=== PATIENT | male | born 1975 | race Caucasian/White ===

== ENCOUNTER 2020-12-31 09:31 | Outpatient (REF) | payer OTHER, SELFPAY ==
[2020-12-31 10:38] LABS: Alanine Aminotransferase 33 U/L (0-40); Albumin Level 4.4 g/dL (3.5-5.0); Alkaline Phosphatase 79 U/L (39-117); Anion Gap 11 (12-20); Aspartate Amino Transferase 27 U/L (5-37); Bilirubin Total 1.5 mg/dL (0.0-1.0); Blood Urea Nitrogen 17 mg/dL (9-16); Calcium 9.5 mg/dL (8.4-10.2); Carbon Dioxide 31 mmol/L (22-29); Chloride 103 mmol/L (96-108); Cholesterol 239 mg/dL; Estimated Glomerular Filt Rate > 60; Glucose Fasting 104 mg/dL (60-99); HDL Cholesterol 36 mg/dL; LDL Cholesterol Calculated 159 mg/dl; Potassium 4.2 mmol/L (3.3-5.1); Sodium 141 mmol/L (135-145); Triglycerides 224 mg/dL
== END 2020-12-31 09:32 | disposition home or self-care (01) ==
LOC: HO.10HDL 09:31
PROVIDERS: Visit Provider Internal Medicine
DX: E11.9 Type 2 diabetes mellitus without complications (principal)
CPT/HCPCS: 36415; 80053; 80061

== ENCOUNTER 2022-01-28 09:05 | Outpatient (REF) | payer OTHER, SELFPAY ==
[2022-01-28 09:15] LABS: MANUAL DIFF FLAG NO
[2022-01-28 09:56] LABS: Basophils Percent Auto 0.7 % (0-2); Eosinophils Absolute Auto 0.1 X10*3/uL (0.0-0.4); Eosinophils Percent Auto 1.4 % (0-4); Hematocrit 47.7 % (42.0-52.0); Hemoglobin 15.8 g/dl (14.0-18.0); Imm Gran Abs Auto 0.02 X10*3/uL (0.00-0.03); Imm Gran Pct Auto 0.3 % (0.0-0.4); Lymphocytes Percent Auto 35.1 % (20-40); Mean Corpuscular HGB Conc 33.1 g/dl (31.0-36.0); Mean Corpuscular Volume 90.5 fL (80.0-98.0); Mean Platelet Volume 10.1 fL (9.4-12.4); Monocytes Absolute Auto 0.6 X10*3/uL (0.1-1.2); Monocytes Percent Auto 10.6 % (2-11); Neutrophils Percent Auto 51.9 % (45-73); Platelet Count 214 X10*3/uL (160-400); Red Blood Count 5.27 X10*6/uL (4.60-5.80); White Blood Count 5.8 X10*3/uL (4.8-10.8)
[2022-01-28 11:29] LABS: Alanine Aminotransferase 30 U/L (0-40); Albumin Level 4.4 g/dL (3.5-5.0); Alkaline Phosphatase 71 U/L (39-117); Anion Gap 12 (12-20); Aspartate Amino Transferase 25 U/L (5-37); Bilirubin Total 1.4 mg/dL (0.0-1.0); Blood Urea Nitrogen 17 mg/dL (9-16); Calcium 9.6 mg/dL (8.4-10.2); Carbon Dioxide 30 mmol/L (22-29); Chloride 104 mmol/L (96-108); Cholesterol 238 mg/dL; Estimated Glomerular Filt Rate > 60; Glucose Fasting 105 mg/dL (60-99); HDL Cholesterol 37 mg/dL; LDL Cholesterol Calculated 161 mg/dl; Potassium 4.5 mmol/L (3.3-5.1); Sodium 141 mmol/L (135-145); Triglycerides 203 mg/dL
[2022-01-28 11:53] LABS: Thyroid Stimulating Hormone 1.14 uIU/mL (0.32-4.0)
== END 2022-01-28 09:06 | disposition home or self-care (01) ==
LOC: HO.LAB 09:05
PROVIDERS: PCP Internal Medicine; Visit Provider Internal Medicine
DX: Z00.00 Encounter for general adult medical examination without abnormal findings (principal); Z13.0 Encounter for screening for diseases of the blood and blood-forming organs and certain disorders involving the immune mechanism
CPT/HCPCS: 36415; 80053; 80061; 84443; 85025

== ENCOUNTER 2022-06-27 09:43 | Outpatient (REF) | payer OTHER, SELFPAY ==
[2022-06-27 11:15] LABS: Cholesterol 226 mg/dL; HDL Cholesterol 34 mg/dL; LDL Cholesterol Calculated 161 mg/dl; Triglycerides 159 mg/dL
== END 2022-06-27 09:44 | disposition home or self-care (01) ==
LOC: HO.10HDL 09:43
PROVIDERS: Visit Provider Internal Medicine
DX: E78.5 Hyperlipidemia, unspecified (principal)
CPT/HCPCS: 36415; 80061

== ENCOUNTER 2023-03-10 10:35 | Outpatient (REF) | payer OTHER, SELFPAY ==
[2023-03-10 13:25] LABS: MANUAL DIFF FLAG NO
[2023-03-10 13:26] LABS: Basophils Percent Auto 0.3 % (0-2); Eosinophils Absolute Auto 0.1 X10*3/uL (0.0-0.4); Hematocrit 44.1 % (42.0-52.0); Imm Gran Abs Auto 0.02 X10*3/uL (0.00-0.03); Imm Gran Pct Auto 0.3 % (0.0-0.4); Lymphocytes Absolute Auto 2.4 X10*3/uL (1.2-4.9); Lymphocytes Percent Auto 40.2 % (20-40); Mean Corpuscular Volume 88.2 fL (80.0-98.0); Mean Platelet Volume 10.4 fL (9.4-12.4); Monocytes Absolute Auto 0.6 X10*3/uL (0.1-1.2); Monocytes Percent Auto 9.6 % (2-11); Neutrophils Absolute Auto 2.9 x10*3/uL (2.0-8.3); Neutrophils Percent Auto 48.6 % (45-73); Platelet Count 223 X10*3/uL (160-400); Red Cell Distribution Width 12.3 % (11.0-16.0)
[2023-03-10 13:45] LABS: Alanine Aminotransferase 26 U/L (0-40); Albumin Level 4.4 g/dL (3.5-5.0); Alkaline Phosphatase 72 U/L (39-117); Anion Gap 13 (12-20); Aspartate Amino Transferase 24 U/L (5-37); Bilirubin Total 1.9 mg/dL (0.0-1.0); Blood Urea Nitrogen 20 mg/dL (9-16); Calcium 9.3 mg/dL (8.4-10.2); Carbon Dioxide 28 mmol/L (22-29); Chloride 104 mmol/L (96-108); Cholesterol 248 mg/dL; Estimated Glomerular Filt Rate > 60; Glucose Fasting 84 mg/dL (60-99); HDL Cholesterol 37 mg/dL; LDL Cholesterol Calculated 189 mg/dl; Sodium 141 mmol/L (135-145); Total Protein 6.9 g/dL (6.5-8.0); Triglycerides 110 mg/dL
[2023-03-10 13:55] LABS: Thyroid Stimulating Hormone 1.21 uIU/mL (0.32-4.0)
== END 2023-03-10 10:36 | disposition home or self-care (01) ==
LOC: HO.10HDL 10:35
PROVIDERS: Visit Provider Internal Medicine
DX: D64.9 Anemia, unspecified (principal); N28.9 Disorder of kidney and ureter, unspecified; E78.5 Hyperlipidemia, unspecified; E03.9 Hypothyroidism, unspecified
CPT/HCPCS: 36415; 80053; 80061; 84443; 85025

== ENCOUNTER 2023-07-24 09:48 | Outpatient (REF) | payer OTHER, SELFPAY ==
[2023-07-24 11:15] LABS: Cholesterol 225 mg/dL (<200); HDL Cholesterol 41 mg/dL (>40); LDL Cholesterol Calculated 158 mg/dL (<100); Triglycerides 133 mg/dL (<150)
== END 2023-07-24 09:49 | disposition home or self-care (01) ==
LOC: HO.10HDL 09:48
PROVIDERS: Visit Provider Internal Medicine
DX: E78.5 Hyperlipidemia, unspecified (principal)
CPT/HCPCS: 36415; 80061

== ENCOUNTER 2023-07-27 09:42 | Outpatient (AMB) | payer OTHER, SELFPAY ==
[2023-07-27 09:43] VITALS: BP 122/70; PULSE 72; O2SAT 99; BMI 23.4
--- NOTE | 2023-07-27 09:43 | MHC.PC.OV ---
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 Accompanied by: Self / Same As Patient Allergies amoxicillin [AMOXICILLIN] Allergy (Unknown, Verified 07/27/23 09:43) HIVES, Rash Medication List - Last Reconciled 07/27/23 by Conrado Zamora MD albuterol sulfate 90 mcg/actuation 2 puffs inhalation Q4-6H PRN albuterol sulfate 90 mcg/actuation (Ventolin HFA) 2 puffs inhalation Q4-6H PRN citalopram 30 mg (1.5 x 20 mg) PO DAILY Tobacco use date assessed: 05/01/23 Dental Screening Dental Screen Date: 07/27/23 Did you have a dental visit in the last 12 months?: Yes Did you have a dental problem in the last 6 months where you did not have access to dental care?: No Was dental information given to patient?: Patient has dentist HPI 3 mth f/u HPI Details panic disorder on rx; doing well; compliant [facility] Medical History Panic disorder Surgical History History of extraction of renal calculus History of adenoidectomy Family History Father Diabetes Hypertension Mother No problems noted. Maternal Grandfather Diverticulitis Brother No problems noted. Family/Other CAD (coronary artery disease) Social History Housing: Apartment Alcohol intake: current Alcohol intake frequency: holidays/special occasions only Patient Tobacco Use Status: Never used Tobacco e-Cigarette/Vaping Use: Never Used Second Hand Smoke Exposure: No service: No Current occupational status: employed Cognitive needs: No Hearing needs: No Vision needs: Yes Questionnaire PHQ-9 Over the last 2 weeks, how often have you been bothered by any of the following problems? 1. Little interest or pleasure in doing things: several days 2. Feeling down, depressed, or hopeless: several days 3. Trouble falling or staying asleep, or sleeping too much: several days 4. Feeling tired or having little energy: not at all 5. Poor appetite or overeating: not at all 6. Feeling bad about yourself - or that you are a failure or have let yourself or your family down: not at all 7. Trouble concentrating on things, such as reading the newspaper or watching television: not at all 8. Moving or speaking so slowly that other people could have noticed. Or the opposite - being so fidgety or restless that you have been moving around a lot more than usual: not at all 9. Thoughts that you would be better off or of hurting yourself in some way: not at all Total score: 3 Depression Screening Interpretation: Negative 20560 - PHQ-9 Billing: Yes Source: Developed by Drs. Moses Oseguera, Jane Little, Javier Weir and colleagues, with an educational neil from [employer]. Thrive Questionnaire Date Thrive assessed: 01/27/23 AUDIT C Alcohol Use Questionnaire (AUDIT-C) 1. How often do you have a drink containing alcohol?: Never Total Score: 0 Score Reviewed/Action Taken: Yes LISA-7 AMB Questionnaire LISA-7 Date LISA - 7 assessed: 01/27/23 Source: Developed by Drs. Moses Oseguera, Jane Little, Javier Weir and colleagues, with an educational neil from [employer]. Review of Systems Const Denies chills, Denies headache(s) and Denies weight loss ENT Denies headache(s) Card Denies chest pain, Denies syncope, Denies irregular heart rhythm and Denies dyspnea Resp Denies chest congestion, Denies cough and Denies dyspnea GI Denies abdominal pain, Denies change in stool character, Denies nausea and Denies vomiting Musc Denies deformity and Denies joint swelling Neuro Denies syncope and Denies headache(s) Physical exam (Primary Care) Vital Signs: Last Vital Signs Pulse 72 07/27/23 09:43 BP 122/70 07/27/23 09:43 Pulse Ox 99 07/27/23 09:43 Oxygen Delivery Method Room Air 07/27/23 09:43 BMI result Body Mass Index 23.4 Tobacco/Smoking Status: Tobacco use Status Tobacco use date assessed 05/01/23 07/27/23 09:44 Patient Tobacco Use Status Never used Tobacco 07/27/23 09:44 e-Cigarette/Vaping Use Never Used 07/27/23 09:44 PHQ-9: PHQ-9 Score PHQ-9: Total score 3 07/27/23 09:44 Depression Screening Interpretation: Negative Thrive Assessment: Date of Thrive Assessment Date Thrive assessed 01/27/23 07/27/23 09:44 Const General: cooperative, comfortable, no acute distress and alert Neck Neck: Yes no lymphadenopathy Thyroid: Thyroid normal Resp Effort & Inspection: normal respiratory effort Auscultation: clear to auscultation bilaterally Percussion: percussion normal Cardio Jugular venous distension: no JVD Palpation: normal PMI Rate: regular rate Rhythm: regular rhythm Heart sounds: S1 normal heart sound present and S2 normal heart sound present GI Inspection: Yes normal to inspection Palpation (GI): No hepatosplenomegaly present Skin General skin exam: no rashes or lesions noted Extrem General: Yes no clubbing, cyanosis or edema Assessment and Plan Assessment & Plan (1) Panic disorder: Code(s): F41.0 - Panic disorder [episodic paroxysmal anxiety] Plan: stable; same rx Coding Level of Care Code Est Pt Level 3 (82477) Diagnoses Panic disorder F41.0
== END 2023-07-27 09:56 | disposition home or self-care (01) ==
PROVIDERS: PCP Internal Medicine; Visit Provider Internal Medicine
DX: F41.0 Panic disorder [episodic paroxysmal anxiety] (principal)
CPT/HCPCS: 99213

== ENCOUNTER 2023-11-07 09:35 | Outpatient (AMB) | payer OTHER, SELFPAY ==
[2023-11-07 09:39] VITALS: BP 132/80; PULSE 75; O2SAT 99; BMI 24.3
--- NOTE | 2023-11-07 09:39 | MHC.PC.OV ---
Vital Signs 11/07/23 09:39 Height 5 ft 8 in Weight 160 lb BMI 24.3 BP 132/80 Blood Pressure Location Lt brachial Position Sitting Pulse 75 Pulse Source Pulse Oximeter Pulse Oximetry (%) 99 Oxygen Delivery Method Room Air Intake Visit Reasons: 3M Follow Up Chemical Handler Required: No Telemedicine Physician: Not Required per policy Accompanied by: Self / Same As Patient Allergies amoxicillin [AMOXICILLIN] Allergy (Unknown, Verified 11/07/23 09:40) HIVES, Rash Medication List - Last Reconciled 11/07/23 by Conrado Zamora MD albuterol sulfate 90 mcg/actuation 2 puffs inhalation Q4-6H PRN albuterol sulfate 90 mcg/actuation (Ventolin HFA) 2 puffs inhalation Q4-6H PRN citalopram 30 mg (1.5 x 20 mg) PO DAILY Tobacco use date assessed: 05/01/23 Dental Screening Dental Screen Date: 11/07/23 Did you have a dental visit in the last 12 months?: Yes Did you have a dental problem in the last 6 months where you did not have access to dental care?: No Was dental information given to patient?: Patient has dentist HPI 3M Follow Up HPI Details panic disorder on rx; doing well; compliant [facility] Medical History Panic disorder Surgical History History of extraction of renal calculus History of adenoidectomy Family History Father Diabetes Hypertension Mother No problems noted. Maternal Grandfather Diverticulitis Brother No problems noted. Family/Other CAD (coronary artery disease) Social History Housing: Apartment Alcohol intake: current Alcohol intake frequency: holidays/special occasions only Patient Tobacco Use Status: Never used Tobacco e-Cigarette/Vaping Use: Never Used Second Hand Smoke Exposure: No service: No Current occupational status: employed Cognitive needs: No Hearing needs: No Vision needs: Yes Questionnaire Thrive Questionnaire Date Thrive assessed: 01/27/23 LISA-7 AMB Questionnaire LISA-7 Date LISA - 7 assessed: 01/27/23 Source: Developed by Drs. Moses Oseguera, Jane Little, Javier Weir and colleagues, with an educational neil from [employer]. Review of Systems Const Denies chills, Denies headache(s) and Denies weight loss ENT Denies headache(s) Card Denies chest pain, Denies syncope, Denies irregular heart rhythm and Denies dyspnea Resp Denies chest congestion, Denies cough and Denies dyspnea GI Denies abdominal pain, Denies change in stool character, Denies nausea and Denies vomiting Musc Denies deformity and Denies joint swelling Neuro Denies syncope and Denies headache(s) Physical exam (Primary Care) Vital Signs: Last Vital Signs Pulse 75 11/07/23 09:39 BP 132/80 11/07/23 09:39 Pulse Ox 99 11/07/23 09:39 Oxygen Delivery Method Room Air 11/07/23 09:39 BMI result Body Mass Index 24.3 Tobacco/Smoking Status: Tobacco use Status Tobacco use date assessed 05/01/23 11/07/23 09:40 Patient Tobacco Use Status Never used Tobacco 11/07/23 09:40 e-Cigarette/Vaping Use Never Used 11/07/23 09:40 Thrive Assessment: Date of Thrive Assessment Date Thrive assessed 01/27/23 11/07/23 09:40 Const General: cooperative, comfortable, no acute distress and alert Neck Neck: Yes no lymphadenopathy Thyroid: Thyroid normal Resp Effort & Inspection: normal respiratory effort Auscultation: clear to auscultation bilaterally Percussion: percussion normal Cardio Jugular venous distension: no JVD Palpation: normal PMI Rate: regular rate Rhythm: regular rhythm Heart sounds: S1 normal heart sound present and S2 normal heart sound present GI Inspection: Yes normal to inspection Palpation (GI): No hepatosplenomegaly present Skin General skin exam: no rashes or lesions noted Extrem General: Yes no clubbing, cyanosis or edema Assessment and Plan Assessment & Plan (1) Panic disorder: Code(s): F41.0 - Panic disorder [episodic paroxysmal anxiety] Plan: stable; same rx Orders: Orders Lipid Panel Today E78.5 - Hyperlipidemia, unspecified Medications: New tobramycin 0.3% 1 drp ophthalmic (eye) Q4H 5 mL 0RF Coding Level of Care Code Est Pt Level 3 (73543) Diagnoses Panic disorder F41.0
== END 2023-11-07 09:53 | disposition home or self-care (01) ==
PROVIDERS: PCP Internal Medicine; Visit Provider Internal Medicine
DX: F41.0 Panic disorder [episodic paroxysmal anxiety] (principal)
CPT/HCPCS: 99213

== ENCOUNTER 2024-01-29 09:59 | Outpatient (REF) | payer OTHER, SELFPAY ==
[2024-01-29 11:33] LABS: Cholesterol 218 mg/dL (<200); HDL Cholesterol 40 mg/dL (>40); LDL Cholesterol Calculated 142 mg/dL (<100); Triglycerides 183 mg/dL (<150)
== END 2024-01-29 10:00 | disposition home or self-care (01) ==
LOC: HO.10HDL 09:59
PROVIDERS: Visit Provider Internal Medicine
DX: E78.5 Hyperlipidemia, unspecified (principal)
CPT/HCPCS: 36415; 80061

== ENCOUNTER 2024-02-06 08:54 | Outpatient (AMB) | payer OTHER, SELFPAY ==
[2024-02-06 08:56] VITALS: BP 120/62; PULSE 76; O2SAT 97; BMI 24.0
--- NOTE | 2024-02-06 08:56 | A.OFFPC_ITS ---
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: Not Required per policy Accompanied by: Self / Same As Patient Allergies amoxicillin [AMOXICILLIN] Allergy (Unknown, Verified 02/06/24 08:56) HIVES, Rash Medication List - Last Reconciled 02/06/24 by Conrado Zamora MD albuterol sulfate 90 mcg/actuation 2 puffs inhalation Q4-6H PRN albuterol sulfate 90 mcg/actuation (Ventolin HFA) 2 puffs inhalation Q4-6H PRN citalopram 30 mg (1.5 x 20 mg) PO DAILY tobramycin 0.3% 1 drp ophthalmic (eye) Q4H Tobacco use date assessed: 02/06/24 Dental Screening Dental Screen Date: 11/07/23 HPI physical HPI Details asthma and panic disorder on rx; doing well PFSH Medical History Panic disorder Surgical History History of extraction of renal calculus History of adenoidectomy Family History (Updated 02/06/24 @ 08:57 by MATHEW Reis) Father Diabetes Hypertension Mother No problems noted. Maternal Grandfather Diverticulitis Brother No problems noted. Family/Other CAD (coronary artery disease) Social History Housing: Apartment Alcohol intake: current Alcohol intake frequency: holidays/special occasions only Patient Tobacco Use Status: Never used Tobacco e-Cigarette/Vaping Use: Never Used Second Hand Smoke Exposure: No service: No Current occupational status: employed Cognitive needs: No Hearing needs: No Vision needs: Yes (glasses) Questionnaire PHQ-9 Over the last 2 weeks, how often have you been bothered by any of the following problems? 1. Little interest or pleasure in doing things: several days 2. Feeling down, depressed, or hopeless: several days 3. Trouble falling or staying asleep, or sleeping too much: several days 4. Feeling tired or having little energy: not at all 5. Poor appetite or overeating: not at all 6. Feeling bad about yourself - or that you are a failure or have let yourself or your family down: not at all 7. Trouble concentrating on things, such as reading the newspaper or watching television: not at all 8. Moving or speaking so slowly that other people could have noticed. Or the opposite - being so fidgety or restless that you have been moving around a lot more than usual: not at all 9. Thoughts that you would be better off or of hurting yourself in some way: not at all Total score: 3 Depression Screening Interpretation: Negative Depression Screening Done: Yes 59401 - PHQ-9 Billing: Yes Source: Developed by Drs. Moses Oseguera, Jane Little, Javier Weir and colleagues, with an educational neil from [employer]. Thrive Questionnaire Date Thrive assessed: 02/06/24 I am a: Patient What is your living situation today?: I have a steady place to live Within the past 12 months, did the food you bought not last and you didn't have the money to get more?: Never true Within the past 12 months, did you worry whether your food would run out before you got money to buy more?: Never true Do you have trouble paying for medicines?: No Do you have trouble getting transportation to medical appointments?: No Do you have trouble paying your heating and electricity bill?: No Do you have trouble taking care of your child, family member or friend?: No Do you have trouble with day-to-day activities such as bathing, preparing meals, shopping, managing finances, etc.?: No Are you currently unemployed and looking for a job?: No Are you interested in more education?: No Please select the resources that you would like help with: None THRIVE Score: 0 AUDIT C Alcohol Use Questionnaire (AUDIT-C) 1. How often do you have a drink containing alcohol?: Never Total Score: 0 Score Reviewed/Action Taken: Yes LISA-7 AMB Questionnaire LISA-7 Date LISA - 7 assessed: 02/06/24 Feeling nervous, anxious, or on edge: 0 = Not at all Not being able to stop or control worryin = Not at all Worrying too much about different things: 0 = Not at all Trouble relaxin = Not at all Being so restless that it is hard to sit still: 0 = Not at all Becoming easily annoyed or irritable: 0 = Not at all Feeling afraid as if something awful might happen: 0 = Not at all Total LISA-7 score (0-4 normal; 5-9 mild; 10-14 moderate; 15-21 severe): 0 Source: Developed by Drs. Moses Oseguera, Jane Little, Javier Weir and colleagues, with an educational neil from [employer]. LISA-7 Assessment Billing LISA-7 Assessment Tool: LISA-7 Assessment 43059 Review of Systems Const Denies chills, Denies fatigue, Denies headache(s) and Denies weight loss Eyes Denies change in vision, Denies diplopia and Denies eye pain ENT Denies vertigo, Denies dizziness, Denies headache(s) and Denies nasal discharge Card Denies chest pain, Denies rapid heart rate and Denies dyspnea on exertion Resp Denies chest congestion, Denies cough, Denies pain with cough and Denies dyspnea on exertion GI Denies abdominal pain, Denies hematochezia and Denies change in bowel habits Musc Denies myalgias, Denies arthralgias and Denies joint swelling Skin/Breast Denies lesions and Denies unusual bruising Neuro Denies vertigo, Denies dizziness, Denies headache(s) and Denies focal weakness Endo Denies fatigue Physical exam (Primary Care) Vital Signs: Last Vital Signs Pulse 76 02/06/24 08:56 BP 120/62 02/06/24 08:56 Pulse Ox 97 02/06/24 08:56 Oxygen Delivery Method Room Air 02/06/24 08:56 BMI result Body Mass Index 24.0 Tobacco/Smoking Status: Tobacco use Status Tobacco use date assessed 02/06/24 02/06/24 09:03 Patient Tobacco Use Status Never used Tobacco 02/06/24 09:03 e-Cigarette/Vaping Use Never Used 02/06/24 09:03 PHQ-9: PHQ-9 Score PHQ-9: Total score 3 02/06/24 09:03 Depression Screening Interpretation: Negative Thrive Assessment: Date of Thrive Assessment Date Thrive assessed 02/06/24 02/06/24 09:03 Const General: cooperative, healthy appearing and no acute distress Orientation/consciousness: oriented to person, oriented to place and oriented to time HENMT Head: Yes normal to inspection, Yes normocephalic and Yes atraumatic Mouth: Normal oral and palatal mucosa present and tongue normal Throat: Yes posterior oropharynx normal and Yes uvula midline Eyes General: appearance normal, both eyes and all related structures Neck Neck: Yes normal visual inspection, Yes full ROM and Yes no lymphadenopathy Thyroid: Thyroid normal Carotids: normal carotid upstroke Chest Chest palpation & inspection: normal inspection of the chest Resp Effort & Inspection: normal respiratory effort and able to speak in complete sentences Auscultation: clear to auscultation bilaterally Cardio Jugular venous distension: no JVD Palpation: normal PMI Rate: regular rate Rhythm: regular rhythm Heart sounds: S1 normal heart sound present and S2 normal heart sound present GI Inspection: Yes normal to inspection Palpation (GI): Soft to palpation and No hepatosplenomegaly present Auscultation: normal bowel sounds General: Yes no CVA tenderness Back/Spine/Pelvis Back: no CVA tenderness Skin General skin exam: no rashes or lesions noted Neuro General: oriented to person, oriented to place and oriented to time Extrem General: Yes normal to inspection and Yes full ROM Assessment and Plan Assessment & Plan (1) Physical exam: Code(s): Z00.00 - Encounter for general adult medical examination without abnormal findings Plan: do labs (2) Asthma: Code(s): J45.909 - Unspecified asthma, uncomplicated Plan: stable; same rx (3) Panic disorder: Code(s): F41.0 - Panic disorder [episodic paroxysmal anxiety] Plan: stable; same rx Orders: Orders Lipid Panel Today E78.5 - Hyperlipidemia, unspecified Thyroid Stimulating Hormone Today E03.9 - Hypothyroidism, unspecified Complete Blood Count Auto Diff Today D64.9 - Anemia, unspecified Comprehensive [place]. Panel Fast Today N28.9 - Disorder of kidney and ureter, unspecified Referrals Gastroenterology Referral Z12.11 - Encounter for screening for malignant neoplasm of colon Coding Level of Care Code Est Pt Prev Care 40-64y(18832) Diagnoses Physical exam Z00.00 Asthma J45.909 Panic disorder F41.0 Additional Codes LISA-7 Assessment Billing - LISA-7 Assessment Tool: LISA-7 Assessment 23883 ([id number])
== END 2024-02-06 09:09 | disposition home or self-care (01) ==
PROVIDERS: PCP Internal Medicine; Visit Provider Internal Medicine
DX: Z00.00 Encounter for general adult medical examination without abnormal findings (principal); J45.909 Unspecified asthma, uncomplicated; F41.0 Panic disorder [episodic paroxysmal anxiety]
CPT/HCPCS: 99396

== ENCOUNTER 2024-05-07 09:24 | Outpatient (AMB) | payer OTHER, SELFPAY ==
[2024-05-07 09:31] VITALS: BP 116/62; PULSE 85; O2SAT 98; BMI 24.0
--- NOTE | 2024-05-07 09:31 | MHC.PC.OV ---
Vital Signs 05/07/24 09:31 Height 5 ft 8 in Weight 158 lb BMI 24.0 BP 116/62 Blood Pressure Location Lt brachial Position Sitting Pulse 85 Pulse Source Pulse Oximeter Pulse Oximetry (%) 98 Oxygen Delivery Method Room Air Intake Visit Reasons: 3mth f/u Allergies amoxicillin [AMOXICILLIN] Allergy (Unknown, Verified 02/06/24 08:56) HIVES, Rash Tobacco use date assessed: 02/06/24 Dental Screening Dental Screen Date: 11/07/23 HPI 3mth f/u HPI Details stable; doing well; asthma stable [facility] Medical History Panic disorder Surgical History History of extraction of renal calculus History of adenoidectomy Family History (Updated 02/06/24 @ 08:57 by MATHEW Reis) Father Diabetes Hypertension Mother No problems noted. Maternal Grandfather Diverticulitis Brother No problems noted. Family/Other CAD (coronary artery disease) Social History Housing: Apartment Alcohol intake: current Alcohol intake frequency: holidays/special occasions only Patient Tobacco Use Status: Never used Tobacco e-Cigarette/Vaping Use: Never Used Second Hand Smoke Exposure: No service: No Current occupational status: employed Cognitive needs: No Hearing needs: No Vision needs: Yes (glasses) Questionnaire Thrive Questionnaire Date Thrive assessed: 02/06/24 LISA-7 AMB Questionnaire LISA-7 Date LISA - 7 assessed: 02/06/24 Source: Developed by Drs. Moses Oseguera, Jane Little, Javier Weir and colleagues, with an educational neil from [employer]. Review of Systems Const Denies chills, Denies headache(s) and Denies weight loss ENT Denies headache(s) Card Denies chest pain, Denies syncope, Denies irregular heart rhythm and Denies dyspnea Resp Denies chest congestion, Denies cough and Denies dyspnea GI Denies abdominal pain, Denies change in stool character, Denies nausea and Denies vomiting Musc Denies deformity and Denies joint swelling Neuro Denies syncope and Denies headache(s) Physical exam (Primary Care) Vital Signs: Last Vital Signs Pulse 85 05/07/24 09:31 BP 116/62 05/07/24 09:31 Pulse Ox 98 05/07/24 09:31 Oxygen Delivery Method Room Air 05/07/24 09:31 BMI result Body Mass Index 24.0 Tobacco/Smoking Status: Tobacco use Status Tobacco use date assessed 02/06/24 05/07/24 09:32 Patient Tobacco Use Status Never used Tobacco 05/07/24 09:32 e-Cigarette/Vaping Use Never Used 05/07/24 09:32 Thrive Assessment: Date of Thrive Assessment Date Thrive assessed 02/06/24 05/07/24 09:32 Const General: cooperative, comfortable, no acute distress and alert Neck Neck: Yes no lymphadenopathy Thyroid: Thyroid normal Resp Effort & Inspection: normal respiratory effort Auscultation: clear to auscultation bilaterally Percussion: percussion normal Cardio Jugular venous distension: no JVD Palpation: normal PMI Rate: regular rate Rhythm: regular rhythm Heart sounds: S1 normal heart sound present and S2 normal heart sound present GI Inspection: Yes normal to inspection Palpation (GI): No hepatosplenomegaly present Skin General skin exam: no rashes or lesions noted Extrem General: Yes no clubbing, cyanosis or edema Assessment and Plan Assessment & Plan (1) Asthma: Code(s): J45.909 - Unspecified asthma, uncomplicated Plan: stable; same rx Coding Level of Care Code Est Pt Level 3 (87490) Diagnoses Asthma J45.909
== END 2024-05-07 09:44 | disposition home or self-care (01) ==
PROVIDERS: PCP Internal Medicine; Visit Provider Internal Medicine
DX: J45.909 Unspecified asthma, uncomplicated (principal)
CPT/HCPCS: 99213

== ENCOUNTER 2024-07-15 09:43 | Outpatient (REF) | payer OTHER, SELFPAY ==
[2024-07-15 10:45] LABS: MANUAL DIFF FLAG NO
[2024-07-15 10:49] LABS: Basophils Absolute Auto 0.1 X10*3/uL (0.0-0.2); Basophils Percent Auto 0.7 % (0-2); Eosinophils Absolute Auto 0.1 X10*3/uL (0.0-0.4); Hematocrit 44.3 % (42.0-52.0); Hemoglobin 15.3 g/dl (14.0-18.0); Imm Gran Abs Auto 0.01 X10*3/uL (0.00-0.03); Imm Gran Pct Auto 0.1 % (0.0-0.4); Lymphocytes Absolute Auto 2.3 X10*3/uL (1.2-4.9); Lymphocytes Percent Auto 33.6 % (20-40); Mean Corpuscular HGB Conc 34.5 g/dl (31.0-36.0); Mean Corpuscular Hemoglobin 30.4 pg (27.0-33.0); Mean Corpuscular Volume 87.9 fL (80.0-98.0); Mean Platelet Volume 9.5 fL (9.4-12.4); Monocytes Absolute Auto 0.6 X10*3/uL (0.1-1.2); Neutrophils Absolute Auto 3.8 x10*3/uL (2.0-8.3); Neutrophils Percent Auto 55.6 % (45-73); Platelet Count 223 X10*3/uL (160-400); Red Blood Count 5.04 X10*6/uL (4.60-5.80); Red Cell Distribution Width 12.1 % (11.0-16.0); White Blood Count 6.8 X10*3/uL (4.8-10.8)
[2024-07-15 11:24] LABS: Alanine Aminotransferase 29 U/L (0-40); Albumin Level 4.3 g/dL (3.5-5.0); Alkaline Phosphatase 68 U/L (39-117); Anion Gap 13 (12-20); Aspartate Amino Transferase 24 U/L (5-37); Bilirubin Total 1.4 mg/dL (0.0-1.0); Blood Urea Nitrogen 20 mg/dL (9-16); Calcium 9.6 mg/dL (8.4-10.2); Carbon Dioxide 27 mmol/L (22-29); Chloride 106 mmol/L (96-108); Cholesterol 235 mg/dL (<200); Estimated Glomerular Filt Rate > 60; Glucose Fasting 102 mg/dL (60-99); HDL Cholesterol 36 mg/dL (>40); LDL Cholesterol Calculated 164 mg/dL (<100); Potassium 3.9 mmol/L (3.3-5.1); Sodium 142 mmol/L (135-145); Thyroid Stimulating Hormone 1.59 uIU/mL (0.32-4.0); Total Protein 7.2 g/dL (6.5-8.0); Triglycerides 177 mg/dL (<150)
== END 2024-07-15 09:44 | disposition home or self-care (01) ==
LOC: HO.10HDL 09:43
PROVIDERS: Visit Provider Internal Medicine
DX: E78.5 Hyperlipidemia, unspecified (principal); D64.9 Anemia, unspecified; E03.9 Hypothyroidism, unspecified; N28.9 Disorder of kidney and ureter, unspecified
CPT/HCPCS: 36415; 80053; 80061; 84443; 85025

== ENCOUNTER 2024-08-07 09:27 | Outpatient (AMB) | payer OTHER, SELFPAY ==
[2024-08-07 09:28] VITALS: BP 136/80; PULSE 77; O2SAT 97; BMI 24.3
--- NOTE | 2024-08-07 09:28 | A.OFFPC_ITS ---
Vital Signs 08/07/24 09:28 Height 5 ft 8 in Weight 160 lb BMI 24.3 BP 136/80 Blood Pressure Location Lt brachial Position Sitting Pulse 77 Pulse Source Pulse Oximeter Pulse Oximetry (%) 97 Oxygen Delivery Method Room Air Intake Visit Reasons: 3mth f/u [place] Operator Required: No Accompanied by: Self / Same As Patient Allergies amoxicillin [AMOXICILLIN] Allergy (Unknown, Verified 08/07/24 09:30) HIVES, Rash Medication List - Last Reconciled 08/07/24 by Conrado Zamora MD albuterol sulfate 90 mcg/actuation 2 puffs inhalation Q4-6H PRN albuterol sulfate 90 mcg/actuation (Ventolin HFA) 2 puffs inhalation Q4-6H PRN citalopram 30 mg (1.5 x 20 mg) PO DAILY Tobacco use date assessed: 02/06/24 Dental Screening Dental Screen Date: 11/07/23 HPI 3mth f/u HPI Details panic disorder on rx; doing well and compliant [facility] Medical History Panic disorder Surgical History History of extraction of renal calculus History of adenoidectomy Family History (Updated 02/06/24 @ 08:57 by MATHEW Reis) Father Diabetes Hypertension Mother No problems noted. Maternal Grandfather Diverticulitis Brother No problems noted. Family/Other CAD (coronary artery disease) Social History Housing: Apartment Alcohol intake: current Alcohol intake frequency: holidays/special occasions on ly Patient Tobacco Use Status: Never used Tobacco Tobacco use type: Cigarette e-Cigarette/Vaping Use: Never Used Second Hand Smoke Exposure: No service: No Current occupational status: employed Cognitive needs: No Hearing needs: No Vision needs: Yes (glasses) Questionnaire PHQ-9 Over the last 2 weeks, how often have you been bothered by any of the following problems? 1. Little interest or pleasure in doing things: several days 2. Feeling down, depressed, or hopeless: several days 3. Trouble falling or staying asleep, or sleeping too much: several days 4. Feeling tired or having little energy: not at all 5. Poor appetite or overeating: not at all 6. Feeling bad about yourself - or that you are a failure or have let yourself or your family down: not at all 7. Trouble concentrating on things, such as reading the newspaper or watching television: not at all 8. Moving or speaking so slowly that other people could have noticed. Or the opposite - being so fidgety or restless that you have been moving around a lot more than usual: not at all 9. Thoughts that you would be better off or of hurting yourself in some way: not at all Total score: 3 Depression Screening Interpretation: Negative Depression Screening Done: Yes 54074 - PHQ-9 Billing: Yes Source: Developed by Drs. Moses Oseguera, Jane Little, Javier Weir and colleagues, with an educational neil from [employer]. Thrive Questionnaire Date Thrive assessed: 02/06/24 Are you currently unemployed and looking for a job?: No AUDIT C Alcohol Use Questionnaire (AUDIT-C) 2. How many drinks containing alcohol do you have on a typical day when you are drinking?: 1 or 2 3. How often do you have six or more drinks on one occasion?: Never Total Score: 0 LISA-7 AMB Questionnaire LISA-7 Date LISA - 7 assessed: 02/06/24 Source: Developed by Drs. Moses Oseguera, Jane Little, Javier Weir and colleagues, with an educational neil from [employer]. Review of Systems Const Denies chills, Denies headache(s) and Denies weight loss ENT Denies headache(s) Card Denies chest pain, Denies syncope, Denies irregular heart rhythm and Denies dyspnea Resp Denies chest congestion, Denies cough and Denies dyspnea GI Denies abdominal pain, Denies change in stool character, Denies nausea and Denies vomiting Musc Denies deformity and Denies joint swelling Neuro Denies syncope and Denies headache(s) Physical exam (Primary Care) Vital Signs: Last Vital Signs Pulse 77 08/07/24 09:28 BP 136/80 08/07/24 09:28 Pulse Ox 97 08/07/24 09:28 Oxygen Delivery Method Room Air 08/07/24 09:28 BMI result Body Mass Index 24.3 Tobacco/Smoking Status: Tobacco use Status Tobacco use date assessed 02/06/24 08/07/24 09:29 Patient Tobacco Use Status Never used Tobacco 08/07/24 09:29 Tobacco use type Cigarette 08/07/24 09:32 e-Cigarette/Vaping Use Never Used 08/07/24 09:29 PHQ-9: PHQ-9 Score PHQ-9: Total score 3 08/07/24 09:32 Depression Screening Interpretation: Negative Thrive Assessment: Date of Thrive Assessment Date Thrive assessed 02/06/24 08/07/24 09:29 Const General: cooperative, comfortable, no acute distress and alert Neck Neck: Yes no lymphadenopathy Thyroid: Thyroid normal Resp Effort & Inspection: normal respiratory effort Auscultation: clear to auscultation bilaterally Percussion: percussion normal Cardio Jugular venous distension: no JVD Palpation: normal PMI Rate: regular rate Rhythm: regular rhythm Heart sounds: S1 normal heart sound present and S2 normal heart sound present GI Inspection: Yes normal to inspection Palpation (GI): No hepatosplenomegaly present Skin General skin exam: no rashes or lesions noted Extrem General: Yes no clubbing, cyanosis or edema Coding Level of Care Code Est Pt Level 3 (27812) Diagnoses Panic disorder F41.0 Assessment & Plan Assessment & Plan (1) Panic disorder: Code(s): F41.0 - Panic disorder [episodic paroxysmal anxiety] Category: Medical Plan: stable; same rx
== END 2024-08-07 09:43 | disposition home or self-care (01) ==
PROVIDERS: PCP Internal Medicine; Visit Provider Internal Medicine
DX: F41.0 Panic disorder [episodic paroxysmal anxiety] (principal)

== ENCOUNTER → 2024-08-07 09:27 | Outpatient (BNVA) | payer OTHER, SELFPAY | PROVIDERS: PCP Internal Medicine; Visit Provider Internal Medicine | DX: F41.0 Panic disorder [episodic paroxysmal anxiety] (principal) | CPT/HCPCS: 96127; 99212 ==

== ENCOUNTER 2024-09-30 10:26 | Day surgery (SDC) | payer OTHER, SELFPAY ==
[2024-09-26 12:29] VITALS: BMI 24.5
--- NOTE | 2024-09-26 13:25 | P.CONAN_ITS ---
Documented by User: Jyoti Lezama NP 09/26/24 13:25 HPI - Anesthesia Eval Consult details Narrative: 49yo M for Colonoscopy PMFSH Active Problems Active Problems: All Active Problems Physical exam (Acute) Hyperlipidemia (Acute) Asthma (Acute) Panic disorder (Acute) Past Medical History Medical History Hx of hemorrhoids Hx of flexible sigmoidoscopy (~2009) IBS (irritable bowel syndrome) Depression Anxiety Asthma Hx of renal calculi Panic disorder Family History Family History Father Diabetes Hypertension Mother No problems noted. Maternal Grandfather Diverticulitis Brother No problems noted. Family/Other CAD (coronary artery disease) Surgical History Surgical History Hx of lithotripsy History of extraction of renal calculus History of adenoidectomy Social History Social History Housing: Apartment Are you a primary primary health care nurse to a significant other at home: No Do you presently have visiting nurse or other home services: No Alcohol intake: current Alcohol intake frequency: does not drink Patient Tobacco Use Status: Never used Tobacco Tobacco use type: Cigarette e-Cigarette/Vaping Use: Never Used Second Hand Smoke Exposure: No Use of substances other than those prescribed or required for medical reasons: No Have you been hit, kicked, punched, or otherwise hurt by someone within the past year? If so, by whom?: No [facility] Practices: Denominational-no blood products Are you DNR?: No Advance Directives: No (will bring DOS) Advance Directives Information Provided: Yes Advance Directives on File: No Recently lost weight without trying: No Nutrition Risks: No Nutritional Risk Poor oral hygiene: No service: No Current occupational status: employed Cognitive needs: No Hearing needs: No Vision needs: Yes (glasses) Meds Allergies Allergy/AdvReac Type Severity Reaction Status Date / Time amoxicillin [AMOXICILLIN] Allergy Unknown HIVES, Rash Verified 08/07/24 09:30 Home Medications ?Medication ?Instructions ?Recorded ?Confirmed ?Last Taken ?Type Fish Oil 09/26/24 09/20/24 History flaxseed oil 09/26/24 09/20/24 History Exam Height,Weight and Vital Signs: Height 5 ft 8 in Weight 73.028 kg Assessment and Plan Assessment Anesthesia Assessment: Chart Reviewed Documented by User: Rimma Hester MD 09/30/24 11:51 PMFSH Past Medical History Medical History Hx of hemorrhoids Hx of flexible sigmoidoscopy (~2009) IBS (irritable bowel syndrome) Depression Anxiety Asthma Hx of renal calculi Panic disorder Family History Family History Father Diabetes Hypertension Mother No problems noted. Maternal Grandfather Diverticulitis Brother No problems noted. Family/Other CAD (coronary artery disease) Family history of problems with anesthesia: No Surgical History Surgical History Hx of lithotripsy History of extraction of renal calculus History of adenoidectomy History of Problems with Anesthesia: No Social History Social History Housing: Apartment Are you a primary primary health care nurse to a significant other at home: No Do you presently have visiting nurse or other home services: No Alcohol intake: current Alcohol intake frequency: does not drink Patient Tobacco Use Status: Never used Tobacco Tobacco use type: Cigarette e-Cigarette/Vaping Use: Never Used Second Hand Smoke Exposure: No Use of substances other than those prescribed or required for medical reasons: No Have you been hit, kicked, punched, or otherwise hurt by someone within the past year? If so, by whom?: No Qu[facility] Healthcare Practices: Denominational-no blood products Are you DNR?: No Advance Directives: No (will bring DOS) Advance Directives Information Provided: Yes Advance Directives on File: No Recently lost weight without trying: No Nutrition Risks: No Nutritional Risk Poor oral hygiene: No service: No Current occupational status: employed Cognitive needs: No Hearing needs: No Vision needs: Yes (glasses) Meds Allergies Allergy/AdvReac Type Severity Reaction Status Date / Time amoxicillin [AMOXICILLIN] Allergy Unknown HIVES, Rash Verified 08/07/24 09:30 Home Medications ?Medication ?Instructions ?Recorded ?Confirmed ?Last Taken ?Type Fish Oil 09/26/24 09/20/24 History flaxseed oil 09/26/24 09/20/24 History Exam Airway Mallampati Class: II TM Dist: >3cm Neck ROM: Full Heart: rrr Lungs: cta Assessment and Plan Assessment Anesthesia Assessment: Anesthesia Plan Discussed Final Anesthetic Review Family History of Problems with Anesthesia: No History of Problems with Anesthesia: No NPO: Yes ASA Class: II Final Preanesthetic Review: No Changes in Pt Med Stat, Meds/Allgs Chart Reviewed, Consent Obtained/Reviewed and Anes Risks/Benef Reviewed (pt is jehovah s witness) Patient Risk: Low Procedure Risk: Low Anesthetic Plan Anesthetic Plan: MAC: Disposition: Standard PACU
[2024-09-26 16:12] VITALS: BMI 24.3
[2024-09-30 10:27] VITALS: BP 127/83; PULSE 105; RESP 16; TEMP 36.9; O2SAT 97
[2024-09-30 10:33] VITALS: BMI 24.0
[2024-09-30] MEDS: Lactated Ringers 1,000 ML 100 ML IVCONT (10:44)
[2024-09-30 13:14] VITALS: BP 98/62; PULSE 75; RESP 16; TEMP 36.1; O2SAT 94
--- NOTE | 2024-09-30 13:16 | P.BOP_ITS ---
Brief Operative Note Date of Service: 09/30/24 Pre-op diagnosis: Screening Post-op diagnosis: other (Internal hemorrhoids) Procedure: Colonoscopy to the cecum and TI Surgeon: Moses Ross MD Anesthesia: MAC Was an Oncology Transplant Network Manager used for this Procedure?: No Estimated blood loss (mL): 0 Pathology: none sent Condition: stable Disposition: PACU
[2024-09-30 13:30] VITALS: BP 98/68; PULSE 72; RESP 16; O2SAT 96
[2024-09-30 13:50] VITALS: BP 123/74; PULSE 68; RESP 16; TEMP 36.3; O2SAT 96
--- NOTE | 2024-09-30 13:58 | OP_ITS ---
DATE OF SERVICE: 09/30/2024 SURGEON: Moses Ross MD INDICATIONS: The patient presents for evaluation of colorectal cancer screening. Full consent obtained from him for this, including risks of bleeding and perforation. PREOPERATIVE DIAGNOSIS: Colorectal cancer screening. POSTOPERATIVE DIAGNOSIS: PROCEDURE PERFORMED: Colonoscopy to the cecum and terminal ileum. ESTIMATED BLOOD LOSS: COMPLICATIONS: ANESTHESIA: Medication used, monitored anesthesia care. ASSISTANTS: SPECIMENS: POSTOPERATIVE DIAGNOSES: Colorectal cancer screening, internal hemorrhoids. DESCRIPTION OF PROCEDURE: The patient was placed in the left lateral decubitus position. The digital rectal exam revealed no abnormalities. The Olympus video pediatric colonoscope was entered into the rectum and advanced easily to the cecum. Once in the cecum, I did identify normal-appearing cecal pouch with appendiceal orifice and a normal-appearing ileocecal valve. The terminal ileum was cannulated and appeared normal. The scope was withdrawn back in the colon. The entire cecum and ileocecal valve appeared normal. The scope was slowly withdrawn assessing all mucosal surfaces carefully. Preparation was excellent. I did not visualize any sign of polyps, colitis, or angiodysplasia. In the rectum, scope was retroflexed visualizing internal hemorrhoids, but no other pathology. The rectal mucosa appeared normal. The scope was straightened and withdrawn from the patient. He tolerated the procedure well and was returned to the recovery area in stable condition. IMPRESSION: Internal hemorrhoids, otherwise normal colonoscopy. PLAN: Given the negative exam and negative family history, I would recommend a repeat colonoscopy in 10 years for further screening. He will otherwise see me on a p.r.n. basis. Moses Ross MD RMW/MODL / [phone]
== END 2024-09-30 14:30 | disposition home or self-care (01) ==
PROVIDERS: PCP Internal Medicine; Visit Provider Internal Medicine
PROC: 0DJD8ZZ Inspection of Lower Intestinal Tract, Via Natural or Artificial Opening Endoscopic (ICD-10-PCS; CPT 45378; principal; 2024-09-30 11:40)
DX: Z12.11 Encounter for screening for malignant neoplasm of colon (principal); K64.8 Other hemorrhoids; E78.5 Hyperlipidemia, unspecified; J45.909 Unspecified asthma, uncomplicated; Z79.899 Other long term (current) drug therapy
CPT/HCPCS: 45378; J2003; J2250; J2704

== ENCOUNTER 2024-12-02 08:27 | Outpatient (AMB) | payer OTHER, SELFPAY ==
--- NOTE | 2024-12-02 08:33 | MHC.PC.OV ---
Vital Signs 12/02/24 08:35 Height 5 ft 8 in Weight 163 lb 8 oz BMI 24.9 BP 140/70 H Blood Pressure Location Lt brachial Position Sitting Pulse 75 Pulse Source Pulse Oximeter Temp 97.1 F Temp Source Skin Pulse Oximetry (%) 97 Oxygen Delivery Method Room Air Intake Visit Reasons: 3 month f/u Intake Note: Patient is here to follow up on HLD, Asthma. Tire Bagger Required: No Strategic Sourcing Consultant: Not Required per policy Accompanied by: Self / Same As Patient Allergies amoxicillin [AMOXICILLIN] Allergy (Unknown, Verified 12/02/24 08:34) HIVES, Rash Medication List - Last Reconciled 12/02/24 by Conrado Zamora MD albuterol sulfate 90 mcg/actuation (Ventolin HFA) 2 puffs inhalation Q4-6H PRN citalopram 30 mg (1.5 x 20 mg) PO DAILY [Fish Oil ] [flaxseed oil ] Tobacco use date assessed: 12/02/24 Dental Screening Dental Screen Date: 12/02/24 Did you have a dental visit in the last 12 months?: Yes Did you have a dental problem in the last 6 months where you did not have access to dental care?: No Was dental information given to patient?: Patient has dentist HPI 3 month f/u HPI Details panic disorder on rx; doing well and compliant [facility] Medical History Hx of hemorrhoids Hx of flexible sigmoidoscopy (~2009) IBS (irritable bowel syndrome) Depression Anxiety Asthma Hx of renal calculi Panic disorder Surgical History Hx of lithotripsy History of extraction of renal calculus History of adenoidectomy Family History Father Diabetes Hypertension Mother No problems noted. Maternal Grandfather Diverticulitis Brother No problems noted. Family/Other CAD (coronary artery disease) Social History Housing: Apartment Are you a primary assisted living care manager to a significant other at home: No Do you presently have visiting nurse or other home services: No Alcohol intake: current Alcohol intake frequency: does not drink Patient Tobacco Use Status: Never used Tobacco Tobacco use type: Cigarette e-Cigarette/Vaping Use: Never Used Second Hand Smoke Exposure: No service: No Current occupational status: employed Cognitive needs: No Hearing needs: No Vision needs: Yes (glasses) Questionnaire PHQ-9 Over the last 2 weeks, how often have you been bothered by any of the following problems? 1. Little interest or pleasure in doing things: not at all 2. Feeling down, depressed, or hopeless: not at all 3. Trouble falling or staying asleep, or sleeping too much: not at all 4. Feeling tired or having little energy: not at all 5. Poor appetite or overeating: not at all 6. Feeling bad about yourself - or that you are a failure or have let yourself or your family down: not at all 7. Trouble concentrating on things, such as reading the newspaper or watching television: not at all 8. Moving or speaking so slowly that other people could have noticed. Or the opposite - being so fidgety or restless that you have been moving around a lot more than usual: not at all 9. Thoughts that you would be better off or of hurting yourself in some way: not at all Total score: 0 Depression Screening Interpretation: Negative Depression Screening Done: Yes Source: Developed by Drs. Moses Oseguera, Jane Little, Javier Weir and colleagues, with an educational neil from [employer]. Thrive Questionnaire Date Thrive assessed: 12/02/24 I am a: Patient What is your living situation today?: I have a steady place to live Within the past 12 months, did the food you bought not last and you didn't have the money to get more?: Never true Within the past 12 months, did you worry whether your food would run out before you got money to buy more?: Never true Do you have trouble paying for medicines?: No Do you have trouble getting transportation to medical appointments?: No Do you have trouble paying your heating and electricity bill?: No Do you have trouble taking care of your child, family member or friend?: No Do you have trouble with day-to-day activities such as bathing, preparing meals, shopping, managing finances, etc.?: No Are you currently unemployed and looking for a job?: No Are you interested in more education?: No Please select the resources that you would like help with: None Currently or been in a relationship where the following occur: No concerns reported THRIVE Score: 0 AUDIT C Alcohol Use Questionnaire (AUDIT-C) 1. How often do you have a drink containing alcohol?: Never Total Score: 0 LISA-7 AMB Questionnaire LISA-7 Date LISA - 7 assessed: 12/02/24 Feeling nervous, anxious, or on edge: 0 = Not at all Not being able to stop or control worryin = Not at all Worrying too much about different things: 0 = Not at all Trouble relaxin = Not at all Being so restless that it is hard to sit still: 0 = Not at all Becoming easily annoyed or irritable: 0 = Not at all Feeling afraid as if something awful might happen: 0 = Not at all Total LISA-7 score (0-4 normal; 5-9 mild; 10-14 moderate; 15-21 severe): 0 Source: Developed by Drs. Moses Oseguera, Jane Little, Javier Weir and colleagues, with an educational neil from [employer]. Review of Systems Const Denies chills, Denies headache(s) and Denies weight loss ENT Denies headache(s) Card Denies chest pain, Denies syncope, Denies irregular heart rhythm and Denies dyspnea Resp Denies chest congestion, Denies cough and Denies dyspnea GI Denies abdominal pain, Denies change in stool character, Denies nausea and Denies vomiting Musc Denies deformity and Denies joint swelling Neuro Denies syncope and Denies headache(s) Physical exam (Primary Care) Vital Signs: Last Vital Signs Temp 97.1 F 12/02/24 08:35 Pulse 75 12/02/24 08:35 BP 140/70 H 12/02/24 08:35 Pulse Ox 97 12/02/24 08:35 Oxygen Delivery Method Room Air 12/02/24 08:35 BMI result Body Mass Index 24.9 Tobacco/Smoking Status: Tobacco use Status Tobacco use date assessed 12/02/24 12/02/24 08:39 Patient Tobacco Use Status Never used Tobacco 12/02/24 08:39 Tobacco use type Cigarette 12/02/24 08:39 e-Cigarette/Vaping Use Never Used 12/02/24 08:39 PHQ-9: PHQ-9 Score PHQ-9: Total score 0 12/02/24 08:39 Depression Screening Interpretation: Negative Thrive Assessment: Date of Thrive Assessment Date Thrive assessed 12/02/24 12/02/24 08:39 Currently or been in a relationship where the following occur: No concerns reported Const General: cooperative, comfortable, no acute distress and alert Neck Neck: Yes no lymphadenopathy Thyroid: Thyroid normal Resp Effort & Inspection: normal respiratory effort Auscultation: clear to auscultation bilaterally Percussion: percussion normal Cardio Jugular venous distension: no JVD Palpation: normal PMI Rate: regular rate Rhythm: regular rhythm Heart sounds: S1 normal heart sound present and S2 normal heart sound present GI Inspection: Yes normal to inspection Palpation (GI): No hepatosplenomegaly present Skin General skin exam: no rashes or lesions noted Extrem General: Yes no clubbing, cyanosis or edema Coding Level of Care Code Est Pt Level 3 (49225) Diagnoses Panic disorder F41.0 Assessment & Plan Assessment & Plan (1) Panic disorder: Code(s): F41.0 - Panic disorder [episodic paroxysmal anxiety] Category: Medical Plan: stable; same rx
[2024-12-02 08:35] VITALS: BP 140/70; PULSE 75; TEMP 36.2; O2SAT 97; BMI 24.9
== END 2024-12-02 08:45 | disposition home or self-care (01) ==
PROVIDERS: PCP Internal Medicine; Visit Provider Internal Medicine
DX: F41.0 Panic disorder [episodic paroxysmal anxiety] (principal)

== ENCOUNTER → 2024-12-02 08:27 | Outpatient (BNVA) | payer OTHER, SELFPAY | PROVIDERS: PCP Internal Medicine; Visit Provider Internal Medicine | DX: F41.0 Panic disorder [episodic paroxysmal anxiety] (principal) | CPT/HCPCS: 99212 ==

== ENCOUNTER 2025-02-07 10:02 | Outpatient (AMB) | payer OTHER, SELFPAY ==
--- NOTE | 2025-02-07 10:12 | MHC.PC.OV ---
Vital Signs 02/07/25 10:14 Height 5 ft 8 in Weight 161 lb 8 oz BMI 24.6 BP 130/78 Blood Pressure Location Lt brachial Position Sitting Pulse 89 Pulse Source Pulse Oximeter Temp 97.3 F Temp Source Temporal Artery Scan Pulse Oximetry (%) 98 Oxygen Delivery Method Room Air Intake Visit Reasons: MISAEL Dr. Zamora Intake Note: Patient is here today for MISAEL from Dr Zamora Residential Collections Required: No Recovery Room Nurse: Not Required per policy Accompanied by: Self / Same As Patient Allergies amoxicillin [AMOXICILLIN] Allergy (Unknown, Verified 02/07/25 10:26) HIVES, Rash Medication List - Last Reconciled 02/07/25 by Chloe Kim PA-C albuterol sulfate 90 mcg/actuation (Ventolin HFA) 2 puffs inhalation Q4-6H PRN citalopram 30 mg (1.5 x 20 mg) PO DAILY [Fish Oil ] [flaxseed oil ] Tobacco use date assessed: 02/07/25 Dental Screening Dental Screen Date: 12/02/[address] Zamora HPI Details 49-year-old male with past medical history of panic disorder, asthma and hyperlipidemia last seen 11/[address] Zamora coming in for transfer care. The patient has experienced persistently high cholesterol levels over several years, with the latest LDL-C measurement at 164 mg/dL, exceeding the desired level of <130 mg/dL. A 10-year atherosclerotic cardiovascular disease (ASCVD) risk assessment shows a calculated risk score of 5.3%. Reports a good response to current medications except for noted cholesterol concerns. Colonoscopy: Dr. Ross 06/2024 repeat in 10 years [facility] Medical History Hx of hemorrhoids Hx of flexible sigmoidoscopy (~2009) IBS (irritable bowel syndrome) Depression Anxiety Asthma Hx of renal calculi Panic disorder Surgical History Hx of lithotripsy History of extraction of renal calculus History of adenoidectomy Family History Father Diabetes Hypertension Mother No problems noted. Maternal Grandfather Diverticulitis Brother No problems noted. Family/Other CAD (coronary artery disease) Social History Housing: Apartment Are you a primary rn homecare to a significant other at home: No Do you presently have visiting nurse or other home services: No Alcohol intake: current Alcohol intake frequency: does not drink Patient Tobacco Use Status: Never used Tobacco Tobacco use type: Cigarette e-Cigarette/Vaping Use: Never Used Second Hand Smoke Exposure: No service: No Current occupational status: employed Cognitive needs: No Hearing needs: No Vision needs: Yes (glasses) Questionnaire Thrive Questionnaire Date Thrive assessed: 12/02/24 LISA-7 AMB Questionnaire LISA-7 Date LISA - 7 assessed: 12/02/24 Source: Developed by Drs. Moses Oseguera, Jane Little, Javier Weir and colleagues, with an educational neil from [employer]. Review of Systems Const Denies body aches, Denies chills, Denies fever(s), Denies headache(s) and Denies poor appetite Eyes Reports no additional complaints ENT Denies dizziness and Denies headache(s) Card Denies chest pain, Denies syncope, Denies lightheadedness and Denies dyspnea Resp Denies cough and Denies dyspnea GI Reports no additional complaints Reports no additional complaints Musc Reports no additional complaints and Denies abnormal gait Skin/Breast Reports system reviewed and no additional complaints, except as documented Neuro Denies abnormal gait, Denies dizziness, Denies syncope and Denies headache(s) Psych Reports no additional complaints Physical exam (Primary Care) Tobacco/Smoking Status: Tobacco use Status Tobacco use date assessed 12/02/24 12/02/24 08:39 Patient Tobacco Use Status Never used Tobacco 12/02/24 08:39 Tobacco use type Cigarette 12/02/24 08:39 e-Cigarette/Vaping Use Never Used 12/02/24 08:39 Thrive Assessment: Date of Thrive Assessment Date Thrive assessed 12/02/24 12/02/24 08:39 Const General: cooperative, healthy appearing, comfortable and no acute distress Orientation/consciousness: patient oriented x3 HENMT Head: Yes normocephalic Ears: hearing grossly normal bilaterally General nose exam: Normal external nose present Eyes General: appearance normal, both eyes and all related structures Conjunctivae: conjunctivae normal Neck Neck: Yes full ROM and Yes no lymphadenopathy Resp Effort & Inspection: normal respiratory effort Auscultation: clear to auscultation bilaterally, no crackles, no rales, no rhonchi and no wheezes Cardio Rate: regular rate Rhythm: regular rhythm Skin General skin exam: no rashes or lesions noted Neuro General: patient oriented x3 Gait exam (Neuro): Normal gait present Extrem General: Yes normal to inspection, Yes full ROM and No edema Psych Affect: normal affect Attitude: cooperative Insight: Good insight present (Psych) Judgement: Good judgement present (Psych) Coding Level of Care Code Est Pt Level 3 (82099) Diagnoses Hyperlipidemia E78.5 Asthma J45.909 Panic disorder F41.0 Assessment & Plan Assessment & Plan (1) Hyperlipidemia: Code(s): E78.5 - Hyperlipidemia, unspecified Category: Medical Plan: Avoid foods that are high in cholesterol such as red meat, fried foods, eggs and baked goods. Triglyceride goal of less than 150 and LDL goal of less than 130. Not currently on medical management Discussed with patient ASCVD risk and recommendation of low intensity statin initiation. Patient would like to try dietary modification at this time is declining the use of a statin. We did discuss statin alternatives plan to repeat labs in 3 months and follow up at that time. A dietary management packet was provided to support lifestyle interventions. (2) Asthma: Code(s): J45.909 - Unspecified asthma, uncomplicated Category: Medical Plan: Asthma currently controlled on present medications. Continue on albuterol as needed. Avoid triggers such as allergies. (3) Panic disorder: Code(s): F41.0 - Panic disorder [episodic paroxysmal anxiety] Category: Medical Plan: Currently on citalopram daily and feeling well on this medication. Plan This note was constructed using voice recognition software. While every effort has been made to ensure accuracy and business strategy manager, still areas may have been included sometimes these areas may affect the content or meeting of the given symptoms. Total time spent caring for the patient today was 30 minutes. This includes time spent before the visit reviewing the chart, time spent during the visit, and time spent after the visit and documentation. Patient was informed and verbally consented to the use of an ambient scribe for clinic note documentation during this visit. Orders: Orders Lipid Panel 3 Months E78.00 - Pure hypercholesterolemia, unspecified Medications: Refilled citalopram 30 mg (1.5 x 20 mg) PO DAILY 90 tabs 2RF albuterol sulfate 90 mcg/actuation (Ventolin HFA) 2 puffs inhalation Q4-6H PRN 8.5 grams 8RF shortness of breath or wheezing
[2025-02-07 10:14] VITALS: BP 130/78; PULSE 89; TEMP 36.3; O2SAT 98; BMI 24.6
--- OUTSIDE RECORDS SUMMARY | 2025-02-07 11:22 | XMS_ITS | Patient Health Record ---
Author Organization [facility] Address [address] [place] [phone] Care Team Providers Care Cellular Phone Repairer Name Role Phone Conrado Zamora MD Primary Care Provider Moses Griffin Unavailable [phone] Allergies Allergen (clinical drug ingredient) Drug/Non Drug Allergy documented on EMR Reaction Allergy Type Onset Date Status amoxicillin Amoxicillin Unknown Drug Allergy Act destinee Reason For Referral No Information Medications Medication SIG (Take, Route, Frequency, Duration) Notes Start Date End Date Status Dulcolax (colon prep) 5 MG take at 3:00 p.m and 7:00p.m. Orally two tablets twice a day for one day for 1 day 07/05/2024 Active MiraLax (colon prep) 17 GM/SCOOP 1 238Gm bottle mixed with Gatorade or Crystal Light Orally begin at 5:00 p.m. the day before the procedure for 1 day 07/05/2024 Active Nac 600 Active Multivitamin Adult A ctive Flax Seed Oil Active Fish Oil Active Citalopram Hydrobromide 20 MG Oral for 60 Active Social History Tobacco Use: Social History Observation Description Date Details (start date - stop date) Never Smoker NA - NA Tobacco Use/Smoking Question Answer Notes Patient is a nonsmoker Alcohol Screen Question Answer Notes Did you have a drink containing alcohol in the p ast year? No Points 0 Interpretation Negative Section Notes: Nonsmoker; occasional drink Problems Problem Type SNOMED Code ICD Code Onset Dates Problem Status W/U Status Risk Notes Problem Colon cancer screening (645865460) Colon cancer screening (Z12.11) Active confirmed Problem Pre-procedure evaluation check (915002116) Encounter for other preprocedural examination (Z01.818) Active confirmed Vital Signs Blood pressure diastolic 00 mm Hg 06/27/2024 Height 5 ft 8 in in 06/27/2024 Blood pressure systolic 00 mm Hg 06/27/2024 Weight 161 lbs 06/27/2024 BMI 24.48 kg/m2 06/27/2024 Encounters Encounter Location Date Provider Diagnosis [facility] [place] [address] [place], [place] [phone] [place]/30/2024 Moses Ross Colon cancer screeni ng Z12.11 and Other hemorrhoids K64.[address] [facility] [address] [place] [phone] 06/27/2024 Moses Ross Colon cancer screeni ng Z12.11 and Encounter for other preprocedural examination Z01.[address] [facility] [address] [place] [phone] 06/27/[address] [facility] [address] [place] [phone] 09/27/2024 Moses Ross Assessments Encounter Date Diagnosis (ICD Code) Assessment Notes Treatment Notes Treatment Clinical Notes Section Notes 09/30/2024 Colon cancer screening (ICD-10 - Z12.11) 09/30/2024 Other hemorrhoids (ICD-10 - K64.8) 06/27/2024 Colon cancer screening (ICD-10 - Z12.11) Overall, Walker appears quite well. Given his age and excellent clinical appearance, I did recommend a colonoscopy for screening purposes. We did review the rationale for that in regard to colon cancer prevention. Full consent was obtained for this, including risks of bleeding and perforation. The procedure will be done with monitored anesthesia care. Walker was comfortable with this plan. Thank you again for allowing me to participate in Heladios care. I shall continue to keep you advised of his progress. 06/27/2024 Encounter for other preprocedural examination (ICD-10 - Z01.818) Overall, Walker appears quite well. Given his age and excellent clinical appearance, I did recommend a colonoscopy for screening purposes. We did review the rationale for that in regard to colon cancer prevention. Full consent was obtained for this, including risks of bleeding and perforation. The procedure will be done with monitored anesthesia care. Walker was comfortable with this plan. Thank you again for allowing me to participate in Walker's care. I shall continue to keep you advised of his progress. Plan Of Treatment Future Test Test Name Order Date COLONOSCOPY 06/27/2024 Insurance Providers Payer Name Payer Address Payer Phone Subscriber Number Group Number Insured Name Patient Relationship to Insured Coverage Start Date Coverage End Date [facility] [address] [address] [place], [place] [id number] [phone] [id number] WALKER ONEILL Self - patient is the insured Medical (General) History Medical History History ICD Code Kidney stones-ESWL Denies [place],DM,CVA,renal disease Asthma - mild intermittent Anxiety/Depression Mild IBS Surgical History Surgery Date(Month/Year) Adenoidectomy
--- OUTSIDE RECORDS SUMMARY | 2025-02-07 11:22 | XMS_ITS ---
Author Organization [facility] Address [address] [place] [phone] Care Team Providers Care Client Advisor Name Role Phone Conrado Zamora MD Primary Care Provider Moses Griffin [phone] REASON FOR VISIT needs doctor note for monday and monday Encounters Encounter Location Date Provider Diagnosis [facility] [address] [place] [phone] 09/27/2024 Moses Ross Plan Of Treatment No Information Progress Notes * RACHEL ONEILL CDOB:1975 ([age] yo M)Acc No.[id number]:09/27/2024 Patient:?RACHEL ONEILL :1975???Age:49 Y???Sex:Male Address:[address] [place] [address] [place] [address], [address] * true * Date:? Generated for Nii keya/Jason/eTransmitting on:?02/07/2025 11:21 AM EDT
--- OUTSIDE RECORDS SUMMARY | 2025-02-07 11:22 | XMS_ITS ---
Author Organization [facility] Address [address] [place] [phone] Care Team Providers Care Foaming Machine Operator Name Role Phone Conrado Zamora MD Primary Care Provider Moses Griffin [phone] REASON FOR VISIT screening Encounters Encounter Location Date Provider Diagnosis [facility] [place] [address] [place] [phone] 09/30/2024 Moses Ross Colon cancer scree laron Z12.11 and Other hemorrhoids K64.8 Assessments Encounter Date Diagnosis (ICD Code) Assessment Notes Treatment Notes Treatment Clinical Notes Section Notes 09/30/2024 Colon cancer screening (ICD-10 - Z12.11) 09/30/2024 Other hemorrhoids (ICD-10 - K64.8) Plan Of Treatment No Information Progress Notes * RACHEL ONEILL CDOB:1975 ([age] yo M)Acc No.[id number]:09/30/2024 COLON WITH MAC Patient:?RACHEL ONEILL Provider:?Moses Ross MD :1975???Age:49 Y???Sex:Male Sharath e:09/30/2024 Address:[address] [place] [address] [place] [address] Pcp:Conrado Zamora MD Subjective: * Chief Complaints: * ???1. Screening. * Medical History:? Objective: * Vitals:? Assessment: * Assessment: 1.?Colon cancer screening - Z12.11 (Primary)???2.?Other hemorrhoids - K64.8??? Plan: * Treatment: * Procedure Codes:?76521 DIAGN OSTIC COLONOSCOPY * * The named appointment provid er may or may not be the originator of this progress note, and it is not deemed complete until electronically signed by the appointment provider. Sign off status: Pending * Provider:?Moses Ross MD Date:? 024 Generated for Melvin laura/Jason/Amado on:?02/07/2025 11:21 AM EDT
--- OUTSIDE RECORDS SUMMARY | 2025-02-07 11:22 | XMS_ITS ---
Author Organization [facility] Address [address] [place] [phone] Care Team Providers Care Supervisor Money Room Name Role Phone Conrado Zamora MD Primary Care Provider Moses Griffin [phone] REASON FOR VISIT bowel prep Medications Medication SIG (Take, Route, Frequency, Duration) [...] the procedure for 1 day 07/05/2024 Active Encounters Encounter Location Date Provider Diagnosis [facility] [address] [place] [phone] 06/27/2024 Moses Ross Plan Of Treatment Medication Medication Name Sig Start Date Stop Date Notes Dulcolax (colon prep) 5 MG take at 3:00 p.m and 7:00p.m. Orally two tablets twice a day for one day for 1 day 07/05/2024 MiraLax (colon prep) 17 GM/SCOOP 1 238Gm bottle mixed with Gatorade or Crystal Light Orally begin at 5:00 p.m. the day before the procedure for 1 day 07/05/2024 Progress Notes * SHENA EDMONDOB:[birth year] (48 yo M)Acc No.[id number]:06/27/2024 Patient:?RACHEL EDMOND :1975???Age:48 Y???Sex:Male Address:[address] [place] [address] * Refills? Start MiraLax (colon prep) Powder, 17 GM/SCOOP, Orally, 1, 1 238Gm bottle mixed with Gatorade or Crystal Light, begin at 5:00 p.m. the day before the procedure, 1 day, Refills=0 Start Dulcolax (colon prep) Tablet Delayed Release, 5 MG, Orally, 4, take at 3:00 p.m and 7:00p.m., two tablets twice a day for one day, 1 day, Refills=0 * true * Date:? Generated for Melvin laura/Jason/Mariaelenaitting on:?02/07/2025 11:22 AM EDT
== END 2025-02-07 10:41 | disposition home or self-care (01) ==
LOC: HO.HMCH 10:02
DX: E78.5 Hyperlipidemia, unspecified (principal); J45.909 Unspecified asthma, uncomplicated; F41.0 Panic disorder [episodic paroxysmal anxiety]

== ENCOUNTER → 2025-02-07 10:02 | Outpatient (BNVA) | payer OTHER, SELFPAY | DX: E78.00 Pure hypercholesterolemia, unspecified (principal); J45.909 Unspecified asthma, uncomplicated; F41.0 Panic disorder [episodic paroxysmal anxiety] | CPT/HCPCS: 99212 ==

== ENCOUNTER 2025-05-08 09:22 | Outpatient (REF) | payer OTHER, SELFPAY ==
--- OUTSIDE RECORDS SUMMARY | 2025-05-08 09:41 | XMS_ITS | Patient Health Record ---
Author Organization [facility] Address [address] [place] [phone] Care Team Providers Care Bus Trolley And Taxi Instructor Name Role Phone Conrado Zamora MD Primary Care Provider Moses Griffin Unavailable [phone] Allergies Allergen (clinical drug ingredient) Drug/Non Drug [...] Status Risk Notes Problem Colon cancer screening (320172992) Colon cancer screening (Z12.11) Active confirmed Problem Pre-procedure evaluation check (896749811) Encounter for other preprocedural examination (Z01.818) Active confirmed Vital Signs Blood pressure diastolic 00 mm Hg 06/27/2024 Height 5 ft 8 in in 06/27/2024 Blood pressure systolic 00 mm Hg 06/27/2024 Weight 161 lbs 06/27/2024 BMI 24.48 kg/m2 06/27/2024 Encounters Encounter Location Date Provider Diagnosis [facility] [place] [address] [place], [place] [phone] 09/30/2024 Moses Ross Colon cancer screeni ng Z12.11 and Other hemorrhoids K64.8 [facility] [address] [place] [phone] 06/27/2024 Moses Ross Colon cancer screeni ng Z12.11 and Encounter for other preprocedural examination Z01.818 [facility] [address] [place] [phone] 06/27/2024 Moses Ross [facility] [address] [place] [phone] 09/27/2024 Moses Ross Assessments Encounter Date Diagnosis [...] Insured Coverage Start Date Coverage End Date [facility] [address] [address] [place], [place] [id number] [phone] [id number] WALKER ONEILL Self - patient is the insured Medical (General) History Medical History History ICD Code Kidney stones-ESWL Denies [place],DM,CVA,renal disease Asthma - mild intermittent Anxiety/Depression Mild IBS Surgical History Surgery Date(Month/Year) Adenoidectomy
[2025-05-08 11:25] LABS: Cholesterol 226 mg/dL (<200); HDL Cholesterol 38 mg/dL (>40); Triglycerides 161 mg/dL (<150)
== END 2025-05-08 09:23 | disposition home or self-care (01) ==
LOC: HO.WFDLDS 09:22
DX: E78.00 Pure hypercholesterolemia, unspecified (principal)
CPT/HCPCS: 36415; 80061

== ENCOUNTER 2025-05-19 09:24 | Outpatient (AMB) | payer OTHER, SELFPAY ==
--- NOTE | 2025-05-19 09:30 | MHC.PC.OV ---
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 Required: No Accompanied by: Self / Same As Patient Allergies amoxicillin (AMOXICILLIN) Allergy (Unknown, Verified 05/19/25 09:52) HIVES, Rash Medication List - Last Reconciled 05/19/25 by Chloe Kim PA-C albuterol sulfate 90 mcg/actuation (Ventolin HFA) 2 puffs inhalation Q4-6H PRN citalopram 30 mg (1.5 x 20 mg) PO DAILY [Fish Oil ] [flaxseed oil ] Tobacco use date assessed: 05/19/25 Dental Screening Dental Screen Date: 05/19/25 Did you have a dental visit in the last 12 months?: Yes Did you have a dental problem in the last 6 months where you did not have access to dental care?: No Was dental information given to patient?: Patient has dentist HPI f/u HLD HPI Details 49-year-old male with past medical history of panic disorder, asthma and hyperlipidemia last seen 02/2025 coming in for follow up. The patient has a history of elevated cholesterol levels since 2020, with LDL cholesterol consistently above the target of 130 mg/dL. Previous LDL cholesterol was 164 mg/dL in July of last year, now reduced to 156 mg/dL. Triglycerides have decreased from 177 mg/dL to 161 mg/dL, and HDL cholesterol increased from 36 mg/dL to 38 mg/dL. The patient's 10-year risk of cardiovascular events has decreased from over 5% to 3.8%. The patient has not engaged in regular exercise but has made dietary changes, such as reducing baked goods and fried foods. [facility] Medical History Hx of hemorrhoids Hx of flexible sigmoidoscopy (~2009) IBS (irritable bowel syndrome) Depression Anxiety Asthma Hx of renal calculi Panic disorder Surgical History Hx of lithotripsy History of extraction of renal calculus History of adenoidectomy Family History Father Diabetes Hypertension Mother No problems noted. Maternal Grandfather Diverticulitis Brother No problems noted. Family/Other CAD (coronary artery disease) Social History Housing: Apartment Are you a primary dog daycare provider to a significant other at home: No Do you presently have visiting nurse or other home services: No Alcohol intake: current Alcohol intake frequency: does not drink Patient Tobacco Use Status: Never used Tobacco Tobacco use type: Cigarette e-Cigarette/Vaping Use: Never Used Second Hand Smoke Exposure: No service: No Current occupational status: employed Cognitive needs: No Hearing needs: No Vision needs: Yes (glasses) Questionnaire PHQ-9 Over the last 2 weeks, how often have you been bothered by any of the following problems? 1. Little interest or pleasure in doing things: not at all 2. Feeling down, depressed, or hopeless: several days 3. Trouble falling or staying asleep, or sleeping too much: several days 4. Feeling tired or having little energy: several days 5. Poor appetite or overeating: not at all 6. Feeling bad about yourself - or that you are a failure or have let yourself or your family down: several days 7. Trouble concentrating on things, such as reading the newspaper or watching television: several days 8. Moving or speaking so slowly that other people could have noticed. Or the opposite - being so fidgety or restless that you have been moving around a lot more than usual: not at all 9. Thoughts that you would be better off or of hurting yourself in some way: not at all Total score: 5 41755 - PHQ-9 Billing: Yes Source: Developed by Drs. Moses Oseguera, Jane Little, Javier Weir and colleagues, with an educational neil from [employer]. Thrive Questionnaire Date Thrive assessed: 05/19/25 I am a: Patient What is your living situation today?: I have a steady place to live Within the past 12 months, did the food you bought not last and you didn't have the money to get more?: Never true Within the past 12 months, did you worry whether your food would run out before you got money to buy more?: Never true Do you have trouble paying for medicines?: No Do you have trouble getting transportation to medical appointments?: No Do you have trouble paying your heating and electricity bill?: No Do you have trouble taking care of your child, family member or friend?: No Do you have trouble with day-to-day activities such as bathing, preparing meals, shopping, managing finances, etc.?: No Are you currently unemployed and looking for a job?: No Are you interested in more education?: I choose not to answer this question Please select the resources that you would like help with: None Currently or been in a relationship where the following occur: No concerns reported THRIVE Score: 0 AUDIT C Alcohol Use Questionnaire (AUDIT-C) 1. How often do you have a drink containing alcohol?: Monthly or less Total Score: 1 LISA-7 AMB Questionnaire LISA-7 Date LISA - 7 assessed: 05/19/25 Feeling nervous, anxious, or on edge: 1 = Several days Not being able to stop or control worryin = Not at all Worrying too much about different things: 1 = Several days Trouble relaxin = Several days Being so restless that it is hard to sit still: 0 = Not at all Becoming easily annoyed or irritable: 1 = Several days Feeling afraid as if something awful might happen: 0 = Not at all Total LISA-7 score (0-4 normal; 5-9 mild; 10-14 moderate; 15-21 severe): 4 Source: Developed by Drs. Moses Oseguera, Jane Little, Javier Weir and colleagues, with an educational neil from [employer]. LISA-7 Assessment Billing LISA-7 Assessment Tool: LISA-7 Assessment 77566 Review of Systems Const Denies body aches, Denies chills, Denies fever(s), Denies headache(s) and Denies poor appetite Eyes Reports no additional complaints ENT Denies dysphagia, Denies dizziness, Denies headache(s) and Denies odynophagia Card Denies chest pain, Denies syncope, Denies edema, Denies irregular heart rhythm, Denies lightheadedness and Denies dyspnea Resp Denies cough and Denies dyspnea GI Denies abdominal pain, Denies constipation, Denies dysphagia, Denies diarrhea, Denies nausea, Denies odynophagia and Denies vomiting Reports no additional complaints Musc Reports no additional complaints and Denies abnormal gait Skin/Breast Reports system reviewed and no additional complaints, except as documented Neuro Denies abnormal gait, Denies dizziness, Denies syncope and Denies headache(s) Psych Reports no additional complaints Physical exam (Primary Care) Vital Signs: Last Vital Signs Temp 97.3 F 05/19/25 09:31 BP 117/70 05/19/25 09:31 Oxygen Delivery Method Room Air 05/19/25 09:31 BMI result Body Mass Index 24.2 Tobacco/Smoking Status: Tobacco use Status Tobacco use date assessed 05/19/25 05/19/25 09:37 Patient Tobacco Use Status Never used Tobacco 05/19/25 09:37 Tobacco use type Cigarette 05/19/25 09:37 e-Cigarette/Vaping Use Never Used 05/19/25 09:37 PHQ-9: PHQ-9 Score PHQ-9: Total score 5 05/19/25 09:51 Thrive Assessment: Date of Thrive Assessment Date Thrive assessed 05/19/25 05/19/25 09:37 Currently or been in a relationship where the following occur: No concerns reported Const General: cooperative, healthy appearing, comfortable and no acute distress Orientation/consciousness: patient oriented x3 HENMT Head: Yes normocephalic Ears: hearing grossly normal bilaterally General nose exam: Normal external nose present Eyes General: appearance normal, both eyes and all related structures Conjunctivae: conjunctivae normal Neck Neck: Yes full ROM and Yes no lymphadenopathy Resp Effort & Inspection: normal respiratory effort Auscultation: clear to auscultation bilaterally, no crackles, no rales, no rhonchi and no wheezes Cardio Rate: regular rate Rhythm: regular rhythm Skin General skin exam: no rashes or lesions noted Neuro General: patient oriented x3 Gait exam (Neuro): Normal gait present Extrem General: Yes normal to inspection, Yes full ROM and No edema Psych Affect: normal affect Attitude: cooperative Insight: Good insight present (Psych) Judgement: Good judgement present (Psych) Coding Level of Care Code Est Pt Level 3 (43180) Diagnoses Hyperlipidemia E78.5 Asthma J45.909 Panic disorder F41.0 Screening for diabetes mellitus Z13.1 Additional Codes LISA-7 Assessment Billing - LISA-7 Assessment Tool: LISA-7 Assessment 21237 ([id number]) PHQ-9 - 57987 - PHQ-9 Billing: Yes ([id number]) Assessment & Plan Assessment & Plan (1) Hyperlipidemia: Code(s): E78.5 - Hyperlipidemia, unspecified Category: Medical Plan: Avoid foods that are high in cholesterol such as red meat, fried foods, eggs and baked goods. Triglyceride goal of less than 150 and LDL goal of less than 130. Not currently on medical management. Most recent LDL 156. His ASCVD risk is below 5% not recommending medication at this time however given persistently elevated labs I did discuss treatment with cholesterol-lowering medications. Patient understands the risks of persistently elevated cholesterol including but not limited to heart attack and stroke. He would like to defer medical management at this time and continue to work on dietary and lifestyle modification. Plan to repeat labs in 3 months and appointment to follow. (2) Asthma: Code(s): J45.909 - Unspecified asthma, uncomplicated Category: Medical Plan: Asthma currently controlled on present medications. Continue on albuterol as needed. Avoid triggers such as allergies. (3) Panic disorder: Code(s): F41.0 - Panic disorder [episodic paroxysmal anxiety] Category: Medical Plan: Currently on citalopram daily and feeling well on this medication. (4) Screening for diabetes mellitus: Code(s): Z13.1 - Encounter for screening for diabetes mellitus Category: Medical Plan: Blood work ordered last fasting glucose 102. Plan This note was constructed using voice recognition software. While every effort has been made to ensure accuracy and post form remover, still areas may have been included sometimes these areas may affect the content or meeting of the given symptoms. Total time spent caring for the patient today was 20 minutes. This includes time spent before the visit reviewing the chart, time spent during the visit, and time spent after the visit and documentation. Patient was informed and verbally consented to the use of an ambient scribe for clinic note documentation during this visit. Orders: Orders Lipid Panel 3 Months E78.00 - Pure hypercholesterolemia, unspecified Hemoglobin A1c 3 Months Z13.1 - Encounter for screening for diabetes mellitus
[2025-05-19 09:31] VITALS: BP 117/70; TEMP 36.3; BMI 24.2
--- OUTSIDE RECORDS SUMMARY | 2025-05-19 09:49 | XMS_ITS | Patient Health Record ---
Author Organization [facility] Address [address] [place] [phone] Care Team Providers Care Overnight Houseperson Name Role Phone Conrado Zamora MD Primary Care Provider Moses Griffin Unavailable [phone] Allergies Allergen (clinical drug ingredient) Drug/Non Drug [...] Status Risk Notes Problem Colon cancer screening (Z12.11) Active confirmed Problem Pre-procedure evaluation check ([id number]) Encounter for other preprocedural examination (Z01.818) Active confirmed Vital Signs Blood pressure diastolic 00 mm Hg 06/27/2024 Height 5 ft 8 in in 06/27/2024 Blood pressure systolic 00 mm Hg 06/27/2024 Weight 161 lbs 06/27/2024 BMI 24.48 kg/m2 06/27/2024 Encounters Encounter Location Date Provider Diagnosis [facility] [address] [place], [place] [id number] 09/30/2024 Moses Ross Colon cancer screeni ng Z12.11 and Other hemorrhoids K64.8 [facility] [address] [place] [phone] 06/27/2024 Moses Ross Colon cancer screeni ng Z12.11 and Encounter for other preprocedural examination Z01.818 [facility] [address] [place] [phone] 06/27/2024 Moses Ross [facility] [address] [place] [phone] 09/27/2024 Moses Ross Assessments Encounter Date Diagnosis [...] again for allowing me to participate in Jenny care. I shall continue to keep you [...] Insured Coverage Start Date Coverage End Date [facility] [address] [address] [place], [place] [id number] WALKER ONEILL Self - patient is the insured Medical (General) History Medical History History ICD Code Kidney stones-ESWL Denies [place],DM,CVA,renal disease Asthma - mild intermittent Anxiety/Depression Mild IBS Surgical History Surgery Date(Month/Year) Adenoidectomy
== END 2025-05-19 10:06 | disposition home or self-care (01) ==
LOC: HO.HMCH 09:25
DX: E78.5 Hyperlipidemia, unspecified (principal); J45.909 Unspecified asthma, uncomplicated; F41.0 Panic disorder [episodic paroxysmal anxiety]; Z13.1 Encounter for screening for diabetes mellitus

== ENCOUNTER → 2025-05-19 09:24 | Outpatient (BNVA) | payer OTHER, SELFPAY | DX: E78.5 Hyperlipidemia, unspecified (principal); J45.909 Unspecified asthma, uncomplicated; F41.0 Panic disorder [episodic paroxysmal anxiety]; Z79.899 Other long term (current) drug therapy; Z13.30 Encounter for screening examination for mental health and behavioral disorders, unspecified; Z13.39 Encounter for screening examination for other mental health and behavioral disorders | CPT/HCPCS: 96127; 99212 ==

== ENCOUNTER 2025-07-17 09:05 | Outpatient (REF) | payer OTHER, SELFPAY ==
--- OUTSIDE RECORDS SUMMARY | 2024-09-30 07:40 | XMS_ITS ---
Author Organization [facility] Address [address] [place] [id number] Care Team Providers Care Certified Retinal Angiographer Name Role Phone Conrado Zamora MD Primary Care Provider Moses Griffin [phone] REASON FOR VISIT screening Encounters Encounter Location Date Provider Diagnosis [facility] [place] [address] [place] [id number] 09/30/2024 Moses Ross Colon cancer scree laron Z12.11 and Other hemorrhoids K64.8 Assessments Encounter Date Diagnosis (ICD Code) Assessment Notes Treatment Notes Treatment Clinical Notes Section Notes 09/30/2024 Colon cancer screening (ICD-10 - Z12.11) 09/30/2024 Other hemorrhoids (ICD-10 - K64.8) Plan Of Treatment No Information Progress Notes * RACHEL ONEILL CDOB:1975 ([age] yo M)Acc No.[id number]:09/30/2024 COLON WITH MAC Patient: RACHEL GILBERT Provider: Lisandro Ross MD :1975 A ge:49 Y S ex:Male Date:09/30/2024 Address:[address] [place] [address] [address] , [facility] Pcp:Conrado Zamora MD Subjective: * Chief Complaints: * 1 . Screening. * Medical History: Objective: * Vitals: Assessment: * Assessment: 1. C olon cancer screening - Z12.11 (Primary) 2 . O ther hemorrhoids - K64.8 Plan: * Treatment: * Procedure Codes: 4 5378 DIAGNOSTIC COLONOSCOPY * * The named appointment provid er may or may not be the originator of this progress note, and it is not deemed complete until electronically signed by the appointment provider. Sign off status: Pending * Provider: Lisandro Ross MD Date: 11/30/2023 Generated for Melvin laura/Jason/Amado on: 0 07/17/2025 10:22 AM EDT
--- OUTSIDE RECORDS SUMMARY | 2025-07-17 10:22 | XMS_ITS | Patient Health Record ---
Author Organization [facility] Address [address] [place] [phone] Care Team Providers Care Mill Roll Operator Name Role Phone Conrado Zamora MD Primary Care Provider Moses Griffin Unavailable [phone] Allergies Allergen (clinical drug ingredient) Drug/Non Drug [...] Status Risk Notes Problem Colon cancer screening ([id number]) Colon cancer screening (Z12.11) Active confirmed Problem Pre-procedure evaluation check ([id number]) Encounter for other preprocedural examination (Z01.818) Active confirmed Encounters Encounter Location Date Provider Diagnosis [facility] [place] [facility] [address] [place], [place] [phone] 09/30/2024 Moses Ross Colon cancer screening Z12.11 and Other hemorrhoids K64.8 [facility] [address] [place] [address] 09/27/2024 Moses Ross Assessments Encounter Date Diagnosis (ICD Code) Assessment Notes Treatment Notes Treatment Clinical Notes Section Notes 09/30/2024 Colon cancer screening (ICD-10 - Z12.11) 09/30/2024 Other hemorrhoids (ICD-10 - K64.8) Plan Of Treatment Future Test Test Name Order Date COLONOSCOPY 06/27/2024 Insurance Providers Payer Name Payer Address Payer Phone Subscriber Number Group Number Insured Name Patient Relationship to Insured Coverage Start Date Coverage End Date [facility] [employer] [facility] [address] [address] [place], [place] [id number] RACHEL ONEILL Self - patient is the insured Medical (General) History Medical History History ICD Code Kidney stones-ESWL Denies [place],DM,CVA,renal disease Asthma - mild intermittent Anxiety/Depression Mild IBS Surgical History Surgery Date(Month/Year) Adenoidectomy
[2025-07-17 11:46] LABS: Hemoglobin A1C 148.1162 umol/L; Total Hemoglobin (HGBA1C) 3889.4936 umol/L
[2025-07-17 11:58] LABS: Cholesterol 218 mg/dL (<200); HDL Cholesterol 37 mg/dL (>40); Triglycerides 152 mg/dL (<150)
== END 2025-07-17 09:06 | disposition home or self-care (01) ==
LOC: HO.WFDLDS 09:05
DX: Z13.1 Encounter for screening for diabetes mellitus (principal); E78.00 Pure hypercholesterolemia, unspecified
CPT/HCPCS: 36415; 80061; 83036

== ENCOUNTER 2025-08-27 09:24 | Outpatient (AMB) | payer OTHER, SELFPAY ==
--- OUTSIDE RECORDS SUMMARY | 2024-09-30 07:40 | XMS_ITS ---
Author Organization [facility] Address [address] [place] [id number] Care Team Providers Care Advertising Dispatch Clerk Name Role Phone Conrado Zamora MD Primary Care Provider Moses Griffin [phone] REASON FOR VISIT screening Encounters Encounter Location Date Provider Diagnosis [facility] [place] [address] [place] [phone] 09/30/2024 Moses Ross Colon cancer scree laron Z12.11 and Other hemorrhoids K64.8 Assessments Encounter Date Diagnosis (ICD Code) Assessment Notes Treatment Notes Treatment Clinical Notes Section Notes 09/30/2024 Colon cancer screening (ICD-10 - Z12.11) 09/30/2024 Other hemorrhoids (ICD-10 - K64.8) Plan Of Treatment No Information Progress Notes * RACHEL ONEILL CDOB:1975 ([age] yo M)Acc No.[id number]:09/30/2024 COLON WITH MAC Patient: RACHEL GILBERT Provider: Lisandro Ross MD :1975 A ge:49 Y S ex:Male Date:09/30/2024 Address:[address] [place] [address] [place], [place] [id number] Pcp:Conrado Zamora MD Subjective: * Chief Complaints: [...] Date: 11/30/2023 Generated for Melvin laura/Jason/Amado on: 10:46 AM EDT
--- NOTE | 2025-08-27 09:36 | A.OFFPC_ITS ---
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 Required: No Allergies amoxicillin (AMOXICILLIN) Allergy (Unknown, Verified 08/27/25 09:46) HIVES, Rash Medication List - Last Reconciled 08/27/25 by Chloe Kim PA-C albuterol sulfate 90 mcg/actuation (Ventolin HFA) 2 puffs inhalation Q4-6H PRN citalopram 30 mg (1.5 x 20 mg) PO DAILY [Fish Oil ] [flaxseed oil ] Tobacco use date assessed: 08/27/25 Dental Screening Dental Screen Date: 08/27/25 Did you have a dental visit in the last 12 months?: Yes Did you have a dental problem in the last 6 months where you did not have access to dental care?: No Was dental information given to patient?: Patient has dentist HPI f/u HLD HPI Details 49-year-old male with past medical histo ry of panic disorder, asthma and hyperlipidemia last seen 05/2025 coming in for follow up. Presenting with a follow-up visit to manage chronic conditions and discuss recent lab results. Asthma Managed with albuterol inhaler, used approximately once a month due to environmental triggers. Anxiety is Controlled with 30 mg of citalopram, with no recent changes in medication or symptoms. Improvements noted in triglycerides and LDL cholesterol levels, with HDL slightly below target. [facility] Medical History Hx of hemorrhoids Hx of flexible sigmoidoscopy (~2009) IBS (irritable bowel syndrome) Depression Anxiety Asthma Hx of renal calculi Panic disorder Surgical History Hx of lithotripsy History of extraction of renal calculus History of adenoidectomy Family History Father Diabetes Hypertension Mother No problems noted. Maternal Grandfather Diverticulitis Brother No problems noted. Family/Other CAD (coronary artery disease) Social History Housing: Apartment Are you a primary childcare aide to a significant other at home: No Do you presently have visiting nurse or other home services: No Alcohol intake: current Alcohol intake frequency: does not drink Patient Tobacco Use Status: Never used Tobacco Tobacco use type: Cigarette e-Cigarette/Vaping Use: Never Used Second Hand Smoke Exposure: No service: No Current occupational status: employed Cognitive needs: No Hearing needs: No Vision needs: Yes (glasses) Questionnaire Thrive Questionnaire Date Thrive assessed: 05/17/25 I am a: Patient What is your living situation today?: I have a steady place to live Within the past 12 months, did the food you bought not last and you didn't have the money to get more?: Never true Within the past 12 months, did you worry whether your food would run out before you got money to buy more?: Never true Do you have trouble paying for medicines?: No Do you have trouble getting transportation to medical appointments?: No Do you have trouble paying your heating and electricity bill?: No Do you have trouble taking care of your child, family member or friend?: No Do you have trouble with day-to-day activities such as bathing, preparing meals, shopping, managing finances, etc.?: No Are you currently unemployed and looking for a job?: No Are you interested in more education?: I choose not to answer this question Please select the resources that you would like help with: None Currently or been in a relationship where the following occur: No concerns reported THRIVE Score: 0 LISA-7 AMB Questionnaire LISA-7 Date LISA - 7 assessed: 05/19/25 Source: Developed by Drs. Moses Oseguera, Jane Little, Javier Weir and colleagues, with an educational neil from [employer]. Review of Systems Const Denies body aches, Denies chills, Denies fever(s), Denies headache(s) and Denies poor appetite Eyes Reports no additional complaints ENT Denies dysphagia, Denies dizziness, Denies headache(s) and Denies odynophagia Card Denies chest pain, Denies syncope, Denies edema, Denies irregular heart rhythm, Denies lightheadedness and Denies dyspnea Resp Denies cough and Denies dyspnea GI Denies abdominal pain, Denies constipation, Denies dysphagia, Denies diarrhea, Denies nausea, Denies odynophagia and Denies vomiting Reports no additional complaints Musc Reports no additional complaints and Denies abnormal gait Skin/Breast Reports system reviewed and no additional complaints, except as documented Neuro Denies abnormal gait, Denies dizziness, Denies syncope and Denies headache(s) Psych Reports no additional complaints Physical exam (Primary Care) Vital Signs: Last Vital Signs Temp 96.9 F 08/27/25 09:37 Pulse 75 08/27/25 09:37 Resp 18 08/27/25 09:37 BP 126/70 08/27/25 09:37 Pulse Ox 95 08/27/25 09:37 Oxygen Delivery Method Room Air 08/27/25 09:37 BMI result Body Mass Index 24.7 Tobacco/Smoking Status: Tobacco use Status Tobacco use date assessed 08/27/25 08/27/25 09:42 Patient Tobacco Use Status Never used Tobacco 08/27/25 09:42 Tobacco use type Cigarette 08/27/25 09:42 e-Cigarette/Vaping Use Never Used 08/27/25 09:42 Thrive Assessment: Date of Thrive Assessment Date Thrive assessed 05/17/25 08/27/25 09:42 Currently or been in a relationship where the following occur: No concerns reported Const General: cooperative, healthy appearing, comfortable and no acute distress Orientation/consciousness: patient oriented x3 HENMT Head: Yes normocephalic Ears: hearing grossly normal bilaterally General nose exam: Normal external nose present Eyes General: appearance normal, both eyes and all related structures Conjunctivae: conjunctivae normal Neck Neck: Yes full ROM and Yes no lymphadenopathy Resp Effort & Inspection: normal respiratory effort Auscultation: clear to auscultation bilaterally, no crackles, no rales, no rhonchi and no wheezes Cardio Rate: regular rate Rhythm: regular rhythm Skin General skin exam: no rashes or lesions noted Neuro General: patient oriented x3 Gait exam (Neuro): Normal gait present Extrem General: Yes normal to inspection, Yes full ROM and No edema Psych Affect: normal affect Attitude: cooperative Insight: Good insight present (Psych) Judgement: Good judgement present (Psych) Coding Level of Care Code Est Pt Level 3 (83230) Diagnoses Asthma J45.909 Hyperlipidemia E78.5 Panic disorder F41.0 Assessment & Plan Assessment & Plan (1) Asthma: Code(s): J45.909 - Unspecified asthma, uncomplicated Category: Medical Plan: Asthma currently controlled on present medications. Continue on albuterol as needed. Avoid triggers such as allergies. (2) Hyperlipidemia: Code(s): E78.5 - Hyperlipidemia, unspecified Category: Medical Plan: Avoid foods that are high in cholesterol such as red meat, fried foods, eggs and baked goods. Triglyceride goal of less than 150 and LDL goal of less than 130. Not currently on medical management. Most recent LDL 151. His ASCVD risk is below 5% not recommending medication at this time however given persistently elevated labs I did discuss treatment with cholesterol-lowering medications. Patient understands the risks of persistently elevated cholesterol including but not limited to heart attack and stroke. He would like to defer medical management at this time and continue to work on dietary and lifestyle modification. He agrees to increase his exercise and continue to work on diet. Plan to repeat labs in 6 months. (3) Panic disorder: Code(s): F41.0 - Panic disorder [episodic paroxysmal anxiety] Category: Medical Plan: Currently on citalopram daily and feeling well on this medication. Plan This note was constructed using voice recognition software. While every effort has been made to ensure accuracy and shell reprint operator, still areas may have been included sometimes these areas may affect the content or meeting of the given symptoms. Total time spent caring for the patient today was 20 minutes. This includes time spent before the visit reviewing the chart, time spent during the visit, and time spent after the visit and documentation. Patient was informed and verbally consented to the use of an ambient scribe for clinic note documentation during this visit. Orders: Orders Vitamin B12 and Folate Today Z13.21 - Encounter for screening for nutritional disorder Influenza [id number] Immunization Today Z23 - Encounter for immunization Lipid Panel Today E78.00 - Pure hypercholesterolemia, unspecified Vitamin D 25-OH Total Today Z13.21 - Encounter for screening for nutritional disorder TSH reflex Free T4 Today Z13.29 - Encounter for screening for other suspected endocrine disorder Comprehensive Met. Panel Today E78.5 - Hyperlipidemia, unspecified, Z00.00 - Encounter for general adult medical examination without abnormal findings Complete Blood Count Auto Diff Today E78.5 - Hyperlipidemia, unspecified, Z13.0 - Encounter for screening for diseases of the blood and blood-forming organs and certain disorders involving the immune mechanism Medications: New Fluarix (PF) (flu vac ts (6mos up)-PF) 0.5 mL IM ONCE 0.5 mL 0RF NS Z23 - Encounter for immunization
[2025-08-27 09:37] VITALS: BP 126/70; PULSE 75; RESP 18; TEMP 36.1; O2SAT 95; BMI 24.7
--- OUTSIDE RECORDS SUMMARY | 2025-08-27 10:46 | XMS_ITS | Patient Health Record ---
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 Orally two tablets twice a day for one day; Duration: 1 day 07/05/2024 Active MiraLax (colon prep) 17 GM/SCOOP 1 238Gm bottle mixed with Gatorade or Crystal Light Orally begin at 5:00 p.m. the day before the procedure; Duration: 1 day 07/05/2024 Active Nac 600 Active Multivitamin Adult A ctive Flax Seed Oil Active Fish Oil Active Citalopram Hydrobromide 20 MG Oral; Duration: 60 Active Social History Tobacco Use: Social [...] Status Risk Notes Problem Colon cancer screening (813125870) Colon cancer screening (Z12.11) Active confirmed Problem Pre-procedure evaluation check (264329657) Encounter for other preprocedural examination (Z01.818) Active confirmed Encounters Encounter Location Date Provider Diagnosis [facility] [address]patient [address], [place] [phone] 09/30/2024 Moses Vandana Colon cancer screening Z12.11 and Other hemorrhoids K64.8 [facility] [address] [place] [address] 09/27/2024 Moses Ross Assessments Encounter Date Diagnosis [...] Insured Coverage Start Date Coverage End Date [facility] [employer] [facility] [address] [address] [place], [place] [id number] RACHEL ONEILL Self - patient is the insured Medical (General) History Medical History History ICD Code Kidney stones-ESWL Denies [place],DM,CVA,renal disease Asthma - mild intermittent Anxiety/Depression Mild IBS Surgical History Surgery Date(Month/Year) Adenoidectomy
== END 2025-08-27 10:34 | disposition home or self-care (01) ==
LOC: HO.HMCH 09:25
DX: J45.909 Unspecified asthma, uncomplicated (principal); E78.5 Hyperlipidemia, unspecified; F41.0 Panic disorder [episodic paroxysmal anxiety]

== ENCOUNTER → 2025-08-27 09:24 | Outpatient (BNVA) | payer OTHER, SELFPAY | DX: F41.0 Panic disorder [episodic paroxysmal anxiety] (principal); J45.909 Unspecified asthma, uncomplicated; E78.5 Hyperlipidemia, unspecified; Z79.899 Other long term (current) drug therapy | CPT/HCPCS: 99212 ==